=== PATIENT | female | born 1930 | race Caucasian/White ===

== ENCOUNTER 2017-07-31 19:22 | Inpatient (IN) | payer MEDICARE, MEDICAID ==
[~2017-07-31] VITALS: Ht 160 cm; Wt 72.6 kg
[2017-07-31] MEDS ORDERED: HYDROcodone/APAP 5/325MG 1 TAB TABLET PO ONE (20:00)
--- NOTE | 2017-07-31 20:06 | PHYS DOC ---
Past Medical History Past Medical History: CHF, CVA, Diabetes-Type II, Hypertension, CO, Other Additional Past Medical Histor: ALZHEIMER'S Past Surgical History: Angioplasty, Cholecystectomy, Hysterectomy, Knee Replacement, Other Additional Past Surgical Histo: CARDIAC STENTS Alcohol Use: None Drug Use: None Adult General Chief Complaint Chief Complaint: MULTIPLE TRAUMA/FALL HPI HPI Patient is a 87 year old tripped and fell and hit her head on the ground, she felt like her surgically repaired knee gave out. Patient's chief complaint today is head pain as well as neck pain and mild right knee pain. Patient has no other complaints. Review of Systems Review of Systems Constitutional: Denies fever or chills [] Eyes: Denies change in visual acuity, redness, or eye pain [] HENT: Injury to right forehead and right cheek Respiratory: Denies cough or shortness of breath [] Cardiovascular: No injury GI: Denies injury : Denies dysuria or hematuria [] Musculoskeletal: Right knee pain Integument: Abrasions to right forehead and right cheek Neurologic: Denies focal weakness or sensory changes . Mild headache All other systems reviewed and found to be negative unless otherwise stated Current Medications Current Medications Current Medications Medications (Trade) Dose Ordered Sig/Saloni Start Time Stop Time Status Last Admin Dose Admin Acetaminophen/ Hydrocodone Bitart (Lortab 5/325) 1 tab 1X ONCE 07/31/17 20:00 07/31/17 20:12 DC 07/31/17 20:25 1 TAB Ibuprofen (Motrin) 400 mg 1X ONCE 07/31/17 22:00 07/31/17 22:01 DC Ondansetron HCl (Zofran) 4 mg PRN Q8HRS PRN 07/31/17 23:15 08/01/17 23:14 Sodium Chloride 1,000 ml @ 125 mls/hr Q8H 07/31/17 23:01 08/01/17 23:00 Allergies Allergies Allergies Coded Allergies Type Severity Reaction Last Updated Verified ibuprofen Allergy Intermediate 07/31/17 Yes acetaminophen Allergy Mild 07/31/17 Yes propoxyphene Adverse Reaction Mild N/V 07/31/17 Yes Physical Exam Physical Exam Constitutional: Well developed, well nourished, no acute distress, non-toxic appearance. [] HENT: Normocephalic, hematoma right forehead, bilateral external ears normal, oropharynx moist, no oral trauma, nose normal. Tenderness to palpation at the level of C6-C7 without step-offs Eyes:EOMI no evidence of entrapment, conjunctiva normal, no discharge. [] Neck: Normal range of motion, no tenderness, supple, no stridor. [] Cardiovascular:Heart rate regular rhythm, no murmur. Tenderness to palpation at the level of C6-C7 without step-offs Lungs & Thorax: Bilateral breath sounds clear to auscultation, no tachypnea Abdomen: Bowel sounds normal, soft, no tenderness, no masses, no pulsatile masses. [] Skin: Warm, dry, no erythema, no rash. Exception: Abrasion to right forehead and right cheek Back: No tenderness, no CVA tenderness. Step-offs Extremities: No tenderness, no cyanosis, ROM intact, no edema. [] Neurologic: Alert and oriented X 3, normal motor function, no focal deficits noted. [] Psychologic: Affect normal, cooperative, mood normal. [] Current Patient Data Vital Signs Vital Signs Date Time Temp Pulse Resp B/P (MAP) Pulse Ox O2 Delivery O2 Flow Rate FiO2 07/31/17 22:24 67 20 160/136 (144) 98 Room Air 07/31/17 19:27 98.0 98.0 Lab Values Laboratory Tests Test 07/31/17 21:35 07/31/17 22:20 Urine Collection Type Unknown Urine Color Yellow Urine Clarity Clear Urine pH 6.0 Urine Specific [place] 1.010 Urine Protein Negative mg/dL (NEG-TRACE) Urine Glucose (UA) Negative mg/dL (NEG) Urine Ketones (Stick) Negative mg/dL (NEG) Urine Blood Negative (NEG) Urine Nitrite Negative (NEG) Urine Bilirubin Negative (NEG) Urine Urobilinogen Dipstick 0.2 mg/dL (0.2 mg/dL) Urine Leukocyte Esterase Trace (NEG) Urine RBC 0 /HPF (0-2) Urine WBC 1-4 /HPF (0-4) Urine Squamous Epithelial Cells Few /LPF Urine Bacteria Few /HPF (0-FEW) White Blood Count 12.3 x10^3/uL (4.0-11.0) H Red Blood Count 3.45 x10^6/uL (3.50-5.40) L Hemoglobin 11.2 g/dL (12.0-15.5) L Hematocrit 33.2 % (36.0-47.0) L Mean Corpuscular Volume 96 fL (79-100) Mean Corpuscular Hemoglobin 32 pg (25-35) Mean Corpuscular Hemoglobin Concent 34 g/dL (31-37) Red Cell Distribution Width 14.2 % (11.5-14.5) Platelet Count 249 x10^3/uL (140-400) Neutrophils (%) (Auto) 71 % (31-73) Lymphocytes (%) (Auto) 18 % (24-48) L Monocytes (%) (Auto) 10 % (0-9) H Eosinophils (%) (Auto) 1 % (0-3) Basophils (%) (Auto) 1 % (0-3) Neutrophils # (Auto) 8.7 x10^3uL (1.8-7.7) H Lymphocytes # (Auto) 2.2 x10^3/uL (1.0-4.8) Monocytes # (Auto) 1.2 x10^3/uL (0.0-1.1) H Eosinophils # (Auto) 0.1 x10^3/uL (0.0-0.7) Basophils # (Auto) 0.1 x10^3/uL (0.0-0.2) Sodium Level 141 mmol/L (136-145) Potassium Level 4.5 mmol/L (3.5-5.1) Chloride Level 105 mmol/L (98-107) Carbon Dioxide Level 28 mmol/L (21-32) Anion Gap 8 (6-14) Blood Urea Nitrogen 36 mg/dL (7-20) H Creatinine 1.8 mg/dL (0.6-1.0) H Estimated GFR (Cockcroft-Gault) 26.7 Glucose Level 146 mg/dL (70-99) H Calcium Level 9.3 mg/dL (8.5-10.1) Troponin I Quantitative < 0.017 ng/mL (0.000-0.055) Laboratory Tests 07/31/17 22:20 Laboratory Tests 07/31/17 22:20 EKG EKG [] Radiology/Procedures Radiology/Procedures [] Course & Med Decision Making Course & Med Decision Making Pertinent Labs and Imaging studies reviewed. (See chart for detail pt in nad. Pt felt dizzy in bathroom and had to be helped. Offered pt admission but pt wants to try and go home. Pt now states she does not feel steady enough to walk. Will check labs, hydrate and plan to admit for obs. Pt will be signed out to Dr Cole to follow up on labs. Signout obtained from Dr. You at 9:45 PM. Patient sustained a head injury and had a negative ER workup. Upon attempted discharge patient the patient was ataxic and unable to ambulate on her own. Patient was unable to ambulate with a walker either. Given the patient's recent head trauma it's unclear whether not she fell secondary to a primary process or if the ataxia is a result of the fall itself from a concussion. Patient's labs were within normal limits except for an elevated BUN/creatinine. I do not have any old labs to review however given the patient's symptoms and inability to ambulate and her dehydration she will need to be admitted for further evaluation and monitoring. Case has been discussed with Dr. Hanley who agrees with the plan to admit the patient. [] Dragon Disclaimer Dragon Disclaimer This electronic medical record was generated, in whole or in part, using a voice recognition dictation system. Departure Departure Impression: Primary Impression: Head injury Additional Impressions: Hematoma Abrasion Dizziness Dehydration Ataxia Concussion Disposition: ADMITTED INPATIENT Admitting Physician: Other (reusch) Condition: STABLE Referrals: ELIZABETH BROWER (PCP) Problem Qualifiers Matias YOU MD Jul 31, 2017 20:06 LUANA COLE MD Jul 31, 2017 23:20
--- NOTE | 2017-07-31 20:39 | RAD ---
Indication: Pain after fall. Technique: Noncontrast CT head was obtained. CT cervical spine includes axial images and coronal and sagittal reformatted images. Comparisons are from June 04, 2009. One or more of the following individualized dose reduction techniques were utilized for this examination: 1. Automated exposure control 2. Adjustment of the mA and/or kV according to patient size 3. Use of iterative reconstruction technique Findings: Head: There is prominence of the ventricles and sulci. Areas of decreased attenuation in the supratentorial white matter are not specific but most suggestive of moderate small vessel ischemic disease. Small chronic appearing lacunar infarcts in the basal ganglia are noted. There is no acute intracranial hemorrhage or extra-axial fluid collection. There is no mass effect or midline shift. Benign calcifications are noted in the basal ganglia. There is no evidence of an acute infarct. There are vascular calcifications. There is no depressed skull fracture. There is a right frontal scalp hematoma. This extends right preseptal. Cervical spine: There is no fracture or dislocation. Prevertebral soft tissues are within normal limits. Craniovertebral junction is unremarkable. There are mild degenerative changes in the spine. Left common and internal carotid artery takes a retropharyngeal course. There are carotid artery calcifications. There is minimal apical emphysema and presumed apical scarring. IMPRESSION: 1. No acute intracranial findings. Brain parenchymal volume loss and probable small vessel ischemic disease. 2. Negative for fracture or dislocation in the cervical spine. Mild degenerative changes. Electronically signed by: Guilherme Garcia MD (07/31/2017 8:36 PM) [facility]
[2017-07-31 21:53] LABS: BILIRUBIN,URINE NEGATIVE (NEG); GLUCOSE,URINE NEGATIVE (NEG); NITRITE,URINE NEGATIVE (NEG); PROTEIN,URINE NEGATIVE (NEG-TRACE); UROBILINOGEN,URINE 0.2 mg/dL (0.2 mg/dL)
[2017-07-31] MEDS ORDERED: IV NORMAL SALINE 500ML BAG 500 ML IV ONE (22:00)
[2017-07-31] MEDS ORDERED: IBUPROFEN 400 MG TABLET. PO ONE (22:00)
[2017-07-31 22:01] LABS: BACTERIA,URINE FEW /HPF (0-FEW); RBC,URINE 0 /HPF (0-2); SQUAMOUS EPITHELIAL CELL,UR FEW /LPF
[2017-07-31 22:30] LABS: BASO # 0.1 x10^3/uL (0.0-0.2); BASO % 1 % (0-3); EOS % 1 % (0-3); HEMATOCRIT 33.2 % (36.0-47.0); HEMOGLOBIN 11.2 g/dL (12.0-15.5); LYMPH # 2.2 x10^3/uL (1.0-4.8); LYMPH % 18 % (24-48); MEAN CORPUSCULAR HEMOGLOBIN 32 pg (25-35); MEAN CORPUSCULAR HGB CONC 34 g/dL (31-37); MEAN CORPUSCULAR VOLUME 96 fL (79-100); MONO % 10 % (0-9); NEUT % 71 % (31-73); PLATELET COUNT 249 x10^3/uL (140-400); RED BLOOD COUNT 3.45 x10^6/uL (3.50-5.40); RED CELL DISTRIBUTION WIDTH 14.2 % (11.5-14.5); WHITE BLOOD COUNT 12.3 x10^3/uL (4.0-11.0)
[2017-07-31 22:44] LABS: CALCIUM 9.3 mg/dL (8.5-10.1); CREATININE 1.8 mg/dL (0.6-1.0); GFR 26.7; POTASSIUM 4.5 mmol/L (3.5-5.1)
[2017-07-31] MEDS ORDERED: ONDANSETRON PF 4 MG/2 ML VIAL. IV PRN (23:15)
[2017-07-31] MEDS ORDERED: DEXTROSE 50% 25 GM / 50ML DISP.SYRIN. IV PRN (23:30)
[2017-07-31] MEDS: IV NORMAL SALINE 1000ML BAG 1,000 ML IV SCH (23:31)
--- NOTE | 2017-07-31 23:51 | HP ---
ADMIT DATE: 07/31/2017 CHIEF COMPLAINT: Fall with head injury. HISTORY OF PRESENT ILLNESS: The patient is an 87-year-old woman with past medical history of CAD, peripheral vascular disease, and diabetes, who started feeling lightheaded and suddenly could not keep up on her legs and fell outside her house on a concrete path, striking her right forehead. She presented to the Emergency Room where x-rays did not reveal any bony fractures or intracranial head injury. However, when trying to ambulate, the patient was found to be quite ataxic and is therefore admitted for further workup. She affirms current headache. Prior to the episode of fall today she felt lightheaded, never lost consciousness, however. She denies any chest pain, shortness of breath, nausea, vomiting, or diaphoresis. She did have 1 more episode of similar leg weakness with fall in her living room and mild right elbow injury 1 week ago. PAST MEDICAL HISTORY: CAD status post cardiac stent placement several years ago, peripheral vascular disease status several stent on the right, status post CVA, diabetes type 2, hypertension, and Alzheimer's. FAMILY HISTORY: Positive for daughter passing away of heart disease, 2 children with lung cancer have passed as well. SOCIAL HISTORY: Currently lives with her son-in-law and granddaughter, quit smoking several years ago. No toxic habits. ALLERGIES: TYLENOL, IBUPROFEN, PROPOXYPHENE. MEDICATIONS: MAR reconciled with home medications. REVIEW OF SYSTEMS: Positive for headache has general aches and pains from arthritis especially chronic back pain for which she takes half a hydrocodone at night. Denies any other focal symptoms, however. PHYSICAL EXAMINATION: VITAL SIGNS: Show a blood pressure of 160/136. Previous blood pressure of 198/87, a pulse at 67, respiratory rate at 20. She is afebrile. GENERAL: This is a well-nourished 87-year-old woman, alert and oriented, in no acute distress. HEENT: Shows bruising over the left buddhist with massive periorbital hematoma with mild pressure on the eyelid. Eye itself appears unaffected. NECK: Supple. LUNGS: Clear to auscultation bilaterally. HEART: Has regular rate and rhythm. ABDOMEN: Has positive bowel sounds, soft, nontender. EXTREMITIES: Show no edema. SKIN: Warm, soft and dry without any rash. LABORATORY DATA: CBC with a WBC of 12.3, hemoglobin 11.2, platelets of 249. Chemistries with a BUN and creatinine of 36 and 1.8. No prior labs available for comparison. Electrolytes, however, are within normal limits. Glucose at 146, troponin is negative. IMAGING: Head and neck CT shows no acute intracranial findings. There is parenchymal volume loss and probable small vessel ischemic disease, no fracture or dislocation of the cervical spine is noted. ASSESSMENT AND PLAN: The patient is an 87-year-old woman with heart disease who presents with a fall associated with lightheadedness. She will be admitted for neurological monitoring as well as cardiac evaluation to rule out any arrhythmias or heart disease associated with her fall. Serial troponins will be obtained. She is placed on tele, cardiac evaluation will be requested in the morning. We will continue all her secondary prevention medications. Her diabetes, currently appears fairly well controlled. We will continue her home regimen, add insulin sliding scale. Hemoglobin A1c will be obtained in the morning as well. We will continue all her other home medications including Namenda and Aricept. We will hold bisphosphonate for osteoporosis for the time being. RACHEAL BRASWELL MD DR: UR/nts JOB#: [id number] / [id number] ELIZABETH Martinez MD
[2017-08-01] VITALS (7 sets, daily range): BP systolic 115–190; BP diastolic 46–74
--- NOTE | 2017-08-01 07:18 | EKG ---
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
--- NOTE | 2017-08-01 07:26 | RAD ---
EXAM: Right knee, 3 views HISTORY: Right knee pain. COMPARISON: 12/16/2005. FINDINGS: A tricompartmental arthroplasty is in expected alignment. There is periosteal reaction about the proximal fibular metadiaphysis consistent with a healed fracture or stress reaction. Osteopenia is moderate. There is no joint effusion. Atherosclerotic calcifications are noted. There is a bone island within the distal femoral metaphysis, stable chronically. IMPRESSION: 1. Healed fracture versus developing stress reaction within the proximal fibular metadiaphysis. Correlate for the site of pain. 2. Right total knee arthroplasty in expected alignment. 3. If there is further concern for patellar fracture, a sunrise view could further evaluate.
[2017-08-01] MEDS: INSULIN ASPART 300 UNITS/3 ML INSULN.PEN SQ SCH ×3 (08:00→17:00)
[2017-08-01] MEDS: IV NORMAL SALINE 1000ML BAG 1,000 ML IV SCH (08:46)
[2017-08-01] MEDS ORDERED: MEMA10TA PO (12:07)
[2017-08-01] MEDS ORDERED: LISI-334 PO (12:07)
[2017-08-01] MEDS ORDERED: CLOP75TA PO ×2 (12:07→16:48)
[2017-08-01] MEDS ORDERED: SITA100T PO (12:07)
[2017-08-01] MEDS ORDERED: SIMV40TA3 PO (12:07)
[2017-08-01] MEDS ORDERED: HYDR-2762 PO (12:07)
[2017-08-01] MEDS ORDERED: LOSA100T6 PO (12:07)
[2017-08-01] MEDS ORDERED: PANT40TA5 PO (12:07)
[2017-08-01] MEDS ORDERED: MONT10TA9 PO (12:07)
[2017-08-01] MEDS ORDERED: LEVO100T5 PO (12:07)
[2017-08-01] MEDS ORDERED: DONE5TAB56 PO (12:07)
[2017-08-01] MEDS ORDERED: ALEN70TA5 PO (12:07)
[2017-08-01] MEDS ORDERED: LORA10TA3 PO (12:07)
--- NOTE | 2017-08-01 13:38 | PDOC2 ---
CARDIAC CONSULT DATE OF CONSULT Date of Consult DATE: 08/01/17 TIME: 13:32 REASON FOR CONSULT Reason for Consult: head injury, CHF on plavix REFERRING PHYSICIAN Referring Physician: Stanford SOURCE Source: Chart review, Patient HISTORY OF PRESENT ILLNESS HISTORY OF PRESENT ILLNESS This is a pleasant 87 yo female admitted for complains of lightheadedness and fall. Reports that she has had several episodes of lightheadedness in the last 2 weeks. This time yesterday afternoon she was taking the trash out and felt lightheaded and felt weak to her knees like her knee gave out and fell and hit her head on the concrete pavement. She sustained right periorbital contusion but no fractures sustained and right frontal head laceration/abrasion. Prior to this she was did not experience any vertigo, SOA, CP, palpitations but was shaky. Denies any visual, or auditory disturbances, nor unilateral weakness, or faical numbness or tingling. While she was on the floor she felt a little SOA but none significant. Denies any CHF symptoms of PND, leg swelling, or orthopnea. Reports adequate hydration. Again she did not lose consciousness. PAST MEDICAL HISTORY Cardiovascular: CAD, CHF, HTN, ID, Hyperlipidemia Pulmonary: No pertinent hx CENTRAL NERVOUS SYSTEM: CVA, Dementia (alzheimers) GI: GERD Heme/Onc: No pertinent hx Psych: No pertinent hx Musculoskeletal: Osteoarthritis Infectious disease: No pertinent hx ENT: Allergic Rhinitis, Other ([place]) Renal/: No pertinent hx Endocrine: Diabetes (2), Hypothyroidism Dermatology: No pertinent hx PAST SURGICAL HISTORY Past Surgical History: Cholecystectomy, Total knee replacement (right), Hysterectomy, Other (PTCA) FAMILY HISTORY Family History: Coronary Artery Disease ([facility]) SOCIAL HISTORY Smoke: No ALCOHOL: none Drugs: None Lives: with Family CURRENT MEDICATIONS CURRENT MEDICATIONS Current Medications Medications (Trade) Dose Ordered Sig/Saloni Route PRN Reason Start Time Stop Time Status Last Admin Dose Admin Acetaminophen/ Hydrocodone Bitart (Lortab 5/325) 1 tab 1X ONCE PO 07/31/17 20:00 07/31/17 20:12 DC 07/31/17 20:25 Sodium Chloride 500 ml @ 500 mls/hr 1X ONCE IV 07/31/17 22:00 07/31/17 23:01 DC 07/31/17 22:23 Sodium Chloride 1,000 ml @ 125 mls/hr Q8H IV 07/31/17 23:01 08/01/17 12:28 DC 08/01/17 08:46 ALLERGIES ALLERGIES: Coded Allergies: ibuprofen (Verified Allergy, Intermediate, 07/31/17) acetaminophen (Verified Allergy, Mild, 07/31/17) propoxyphene (Verified Adverse Reaction, Mild, N/V, 07/31/17) ROS Review of System 14 point ROS evaluated with pertinent positives noted per HPI PHYSICAL EXAM General: Alert, Oriented X3, Cooperative, No acute distress HEENT: Mucous membr. moist/pink, Other (right periorbital contusion/ecchymoses ) Heart: Regular rate (SR), Normal S1, Normal S2, Other (diffuse 3/6 systolic murmur) Abdomen: Soft, No tenderness Extremities: No cyanosis, No edema Skin: No breakdown, No significant lesion Neuro: Normal speech, Sensation intact Psych/Mental Status: Mental status NL, Mood NL MUSCULOSKELETAL: Osteoarthritic changes both hands VITALS VITALS Vital Signs Date Time Temp Pulse Resp B/P (MAP) Pulse Ox O2 Delivery O2 Flow Rate FiO2 08/01/17 11:04 97.9 59 18 115/51 (72) 96 Room Air 97.9 LABS Lab: Laboratory Tests Test 07/31/17 21:35 07/31/17 22:20 08/01/17 07:35 08/01/17 11:26 Urine Collection Type Unknown Urine Color Yellow Urine Clarity Clear Urine pH 6.0 Urine Specific [place] 1.010 Urine Protein Negative mg/dL (NEG-TRACE) Urine Glucose (UA) Negative mg/dL (NEG) Urine Ketones (Stick) Negative mg/dL (NEG) Urine Blood Negative (NEG) Urine Nitrite Negative (NEG) Urine Bilirubin Negative (NEG) Urine Urobilinogen Dipstick 0.2 mg/dL (0.2 mg/dL) Urine Leukocyte Esterase Trace (NEG) Urine RBC 0 /HPF (0-2) Urine WBC 1-4 /HPF (0-4) Urine Squamous Epithelial Cells Few /LPF Urine Bacteria Few /HPF (0-FEW) White Blood Count 12.3 x10^3/uL (4.0-11.0) Red Blood Count 3.45 x10^6/uL (3.50-5.40) Hemoglobin 11.2 g/dL (12.0-15.5) Hematocrit 33.2 % (36.0-47.0) Mean Corpuscular Volume 96 fL (79-100) Mean Corpuscular Hemoglobin 32 pg (25-35) Mean Corpuscular Hemoglobin Concent 34 g/dL (31-37) Red Cell Distribution Width 14.2 % (11.5-14.5) Platelet Count 249 x10^3/uL (140-400) Neutrophils (%) (Auto) 71 % (31-73) Lymphocytes (%) (Auto) 18 % (24-48) Monocytes (%) (Auto) 10 % (0-9) Eosinophils (%) (Auto) 1 % (0-3) Basophils (%) (Auto) 1 % (0-3) Neutrophils # (Auto) 8.7 x10^3uL (1.8-7.7) Lymphocytes # (Auto) 2.2 x10^3/uL (1.0-4.8) Monocytes # (Auto) 1.2 x10^3/uL (0.0-1.1) Eosinophils # (Auto) 0.1 x10^3/uL (0.0-0.7) Basophils # (Auto) 0.1 x10^3/uL (0.0-0.2) Sodium Level 141 mmol/L (136-145) Potassium Level 4.5 mmol/L (3.5-5.1) Chloride Level 105 mmol/L (98-107) Carbon Dioxide Level 28 mmol/L (21-32) Anion Gap 8 (6-14) Blood Urea Nitrogen 36 mg/dL (7-20) Creatinine 1.8 mg/dL (0.6-1.0) Estimated GFR (Cockcroft-Gault) 26.7 Glucose Level 146 mg/dL (70-99) Calcium Level 9.3 mg/dL (8.5-10.1) Troponin I Quantitative < 0.017 ng/mL (0.000-0.055) Glucose (Fingerstick) 141 mg/dL (70-99) 126 mg/dL (70-99) ASSESSMENT/PLAN ASSESSMENT/PLAN 1. Presyncope with traumatic Mechanical fall/periorbital contusion: no fractures. Possible vasovagal but chronotropic oincompetence or bradyarrhythmia could not be ruled out. 2. CAD: PCI/stent >5yrs ago. No cardiac symptoms. 3. Chronic CHF with possible diastolic dysfunction: compensated 4. Suspecting 5. Accelerated HTN: better 6. Alzheimers dementia 7. Hx of CVA with possible carotid artery disease 8. Hypothyroidism/DM2: hypoglycemic reaction could not be ruled out. Recommendations 1. TTE today. If no significant ectopies then will plan for event monitor 2. Will ambulate pt and not chronotropic response, discussed with RN. 3. May DC plavix for now and continue with ECASA. 4. Continue with BP home meds. 5. Carotid doppler. TSH, lipid panel. 6. Has not followed up with cardiology in a while, will establish f/u as an outpt. Problems: DILIA ODELL APRN Aug 01, 2017 13:38
[2017-08-01] MEDS ORDERED: METOPROLOL TART IMMED RELEASE 25 MG TABLET. PO SCH (14:30)
--- NOTE | 2017-08-01 15:07 | PDOC ---
PROGRESS NOTES Chief Complaint Chief Complaint Dizziness Fall with head trauma ASSESSMENT AND PLAN: 1. Periorbital hematoma: w/o fx. treat symptomatically 2. Dizziness: cardiology consulted. echo pending. needs Holter post D/C 3. CAD: PCI/stent >5yrs ago. no acute issues. cont home meds - hold plavix as per cards 4. Accelerated HTN: adjust meds as indicated 5. PVD: hx CVA; carotid US 6. DM2: fairly well controlled. HgbA1c pending 7. Dementia: mild. cont Namenda and Aricept. History of Present Illness History of Present Illness feels ok, no significant BERGMAN. in good spirits Vitals Vitals Vital Signs Date Time Temp Pulse Resp B/P (MAP) Pulse Ox O2 Delivery O2 Flow Rate FiO2 08/01/17 11:04 97.9 59 18 115/51 (72) 96 Room Air 97.9 Physical Exam General: Alert, Oriented X3, Cooperative, No acute distress Heart: Regular rate, Other ( 3/6 systolic murmur) Lungs: Clear Abdomen: Normal bowel sounds, Soft, No tenderness Extremities: No cyanosis, No edema Skin: No rashes Labs LABS Laboratory Tests Test 07/31/17 21:35 07/31/17 22:20 08/01/17 07:35 08/01/17 11:26 Urine Collection Type Unknown Urine Color Yellow Urine Clarity Clear Urine pH 6.0 Urine Specific [place] 1.010 Urine Protein Negative mg/dL (NEG-TRACE) Urine Glucose (UA) Negative mg/dL (NEG) Urine Ketones (Stick) Negative mg/dL (NEG) Urine Blood Negative (NEG) Urine Nitrite Negative (NEG) Urine Bilirubin Negative (NEG) Urine Urobilinogen Dipstick 0.2 mg/dL (0.2 mg/dL) Urine Leukocyte Esterase Trace (NEG) Urine RBC 0 /HPF (0-2) Urine WBC 1-4 /HPF (0-4) Urine Squamous Epithelial Cells Few /LPF Urine Bacteria Few /HPF (0-FEW) White Blood Count 12.3 x10^3/uL (4.0-11.0) Red Blood Count 3.45 x10^6/uL (3.50-5.40) Hemoglobin 11.2 g/dL (12.0-15.5) Hematocrit 33.2 % (36.0-47.0) Mean Corpuscular Volume 96 fL (79-100) Mean Corpuscular Hemoglobin 32 pg (25-35) Mean Corpuscular Hemoglobin Concent 34 g/dL (31-37) Red Cell Distribution Width 14.2 % (11.5-14.5) Platelet Count 249 x10^3/uL (140-400) Neutrophils (%) (Auto) 71 % (31-73) Lymphocytes (%) (Auto) 18 % (24-48) Monocytes (%) (Auto) 10 % (0-9) Eosinophils (%) (Auto) 1 % (0-3) Basophils (%) (Auto) 1 % (0-3) Neutrophils # (Auto) 8.7 x10^3uL (1.8-7.7) Lymphocytes # (Auto) 2.2 x10^3/uL (1.0-4.8) Monocytes # (Auto) 1.2 x10^3/uL (0.0-1.1) Eosinophils # (Auto) 0.1 x10^3/uL (0.0-0.7) Basophils # (Auto) 0.1 x10^3/uL (0.0-0.2) Sodium Level 141 mmol/L (136-145) Potassium Level 4.5 mmol/L (3.5-5.1) Chloride Level 105 mmol/L (98-107) Carbon Dioxide Level 28 mmol/L (21-32) Anion Gap 8 (6-14) Blood Urea Nitrogen 36 mg/dL (7-20) Creatinine 1.8 mg/dL (0.6-1.0) Estimated GFR (Cockcroft-Gault) 26.7 Glucose Level 146 mg/dL (70-99) Calcium Level 9.3 mg/dL (8.5-10.1) Troponin I Quantitative < 0.017 ng/mL (0.000-0.055) Glucose (Fingerstick) 141 mg/dL (70-99) 126 mg/dL (70-99) RACHEAL BRASWELL MD Aug 01, 2017 15:07
[2017-08-01] MEDS: ASPIRIN ENTERIC COATED 81 MG TABLET.DR. PO SCH (15:43)
[2017-08-01] MEDS: LISINOPRIL 20 MG TABLET PO SCH (15:43)
--- NOTE | 2017-08-01 16:20 | CARD ---
APPROVED REPORT EXAM: Two-dimensional and M-mode echocardiogram with Doppler and color Doppler. Other Information Quality : Fair INDICATION Presyncope 2D DIMENSIONS RVDd2.8 (2.9-3.5cm)Left Atrium(2D)3.2 (1.6-4.0cm) IVSd1.3 (0.7-1.1cm)Aortic Root(2D)2.8 (2.0-3.7cm) LVDd4.9 (3.9-5.9cm)LVOT Diameter2.2 (1.8-2.4cm) PWd1.2 (0.7-1.1cm)LVDs3.1 (2.5-4.0cm) FS (%) 36.1 %SV73.2 ml LVEF(%)60.0 (>50%) Aortic Valve AoV Peak Joey.160.5cm/sAoV VTI44.2cm AO Peak GR.10.3mmHgLVOT Peak Joey.140.3cm/s LVOT VTI 37.19cmAO Mean GR.7mmHg JOCELIN (VMAX)3.34ee2SIA (VTI)3.20cm2 Mitral Valve MV E Qtekilbr86.8cm/sMV DECEL [id number] MV A Mmaimcxm768.2cm/sMV ZQM110zp E/A Ratio0.8MVA (PHT)1.99cm2 TDI E/Lateral E'14.3E/Medial E'21.1 Tricuspid Valve TR P. Ikdvoouw556de/sRAP [id number] TR Peak Gr.34jzRaHNOI03slJz Pulmonary Vein S1 Nkyycroc74.0cm/sD2 Sxjhpcbe25.8cm/s LEFT VENTRICLE The left ventricle is normal size. There is mild concentric left ventricular hypertrophy. The Ejectio n Fraction is 55-60%. The left ventricular systolic function is normal and the ejection fraction is w ithin normal range. There is normal LV segmental wall motion. Transmitral Doppler flow pattern is Gra de I-abnormal relaxation pattern. RIGHT VENTRICLE The right ventricle is normal size. The right ventricular systolic function is normal. ATRIA The left atrium size is normal. The right atrium size is normal. The interatrial septum is intact wit h no evidence for an atrial septal defect or patent foramen ovale as noted on 2-D or Doppler imaging. AORTIC VALVE The aortic valve is calcified but opens well. Doppler and Color Flow revealed no significant aortic r egurgitation. There is no significant aortic valvular stenosis. MITRAL VALVE The mitral valve is calcified but opens well. Mitral annular calcification is mild. There is no evide nce of mitral valve prolapse. There is no mitral valve stenosis. Doppler and Color-flow revealed trac e to mild mitral regurgitation. TRICUSPID VALVE The tricuspid valve is normal in structure and function. Doppler and Color Flow revealed trace to mil d tricuspid regurgitation. The PA pressure was estimated at 31 mmHg. There is no tricuspid valve sten osis. PULMONIC VALVE The pulmonary valve is normal in structure and function. Doppler and Color Flow revealed trace to mil d pulmonic valvular regurgitation. There is no pulmonic valvular stenosis. GREAT VESSELS The aortic root is normal in size. The ascending aorta is normal in size. The IVC is normal in size a nd collapses >50% with inspiration. PERICARDIAL EFFUSION There is no evidence of significant pericardial effusion. Critical Notification Critical Value: No <Conclusion> The left ventricle is normal size. The Ejection Fraction is 55-60%. The left ventricular systolic function is normal and the ejection fraction is within normal range. There is mild concentric left ventricular hypertrophy. There is no significant aortic valvular stenosis. Doppler and Color Flow revealed no significant aortic regurgitation. Doppler and Color-flow revealed trace to mild mitral regurgitation. Doppler and Color Flow revealed trace to mild tricuspid regurgitation. The PA pressure was estimated at 31 mmHg.
[2017-08-01] MEDS ORDERED: MEMA14CA PO (16:48)
[2017-08-01] MEDS ORDERED: METO25TA4 PO (16:48)
[2017-08-01] MEDS: PANTOPRAZOLE 40 MG TABLET.DR. PO SCH (16:52)
[2017-08-01] MEDS ORDERED: hydrALAZINE 20 MG/ML VIAL. IVP PRN (17:15)
--- NOTE | 2017-08-01 18:14 | RAD ---
APPROVED REPORT Patient Location: IN-PATIENT Laterality:Bilateral Indications Bruit CVA/TIA: PRESYNCOPY Doppler Spectral Velocity Analysis Right Left mCCA 69/69 cm/smCCA 58/58 cm/s ECA 160/ cm/sECA 106/ cm/s pICA 246/62 cm/spICA 77/21 cm/s [place] 194/38 cm/smICA 101/17 cm/s dICA 83/16 cm/sdICA 90/19 cm/s ICA/CCA 3.57ICA/CCA 0.90 Findings Queen scale images of the right common carotid artery bifurcation demonstrate significant atherosclero tic plaque. There is significant burden noted at the ostium of the internal carotid artery of greater than 50% luminal stenosis. Spectral waveforms in the proximal internal carotid artery are consistent with greater than 70% stenosis. Peak systolic velocities of 246 cm/s are again consistent with great er than 70% stenosis. The right external carotid artery does not demonstrate any evidence of high-gra de disease but does have elevated velocities of approximately 160 cm/s. The ICA to CCA ratios are georgina vated on the right side again consistent with the overall picture of high-grade internal carotid merline ry stenosis. The right vertebral artery appears to demonstrate retrograde flow suggestive of possible subclavian stenosis. Spectral waveforms and color Doppler of the left internal carotid artery, common carotid artery and e xternal carotid arteries do not demonstrate any evidence of high-grade disease. Velocity profiles are grossly normal suggestive 0-50% stenosis. The ICA to CCA ratios are unremarkable. The vertebral vel[place] on the left side appear to be antegrade and within normal limits. Critical Notification Critical Value: No <Conclusion> 1. High-grade right proximal and mid internal carotid artery disease with reversal of flow in the moiz tebral artery on the right side suggestive of subclavian stenosis.
[2017-08-01] MEDS: MEMANTINE 5 MG TABLET. PO SCH (20:54)
[2017-08-01] MEDS: SIMVASTATIN 40 MG TABLET. PO SCH (20:54)
[2017-08-01] MEDS: DONEPEZIL HCL 5 MG TABLET. PO SCH (20:54)
[2017-08-01] MEDS ORDERED: PNEUMOC CONJ VACC 23-VALENT 0.5 ML VIAL. VAX IM ONE (21:00)
[2017-08-01] MEDS ORDERED: FLU VACC QS2017-18 (36MOS+)/PF 0.5 ML SYRINGE. VAX IM ONE (21:00)
[2017-08-02 03:00] VITALS: BP 138/61
[2017-08-02 05:42] LABS: CALCIUM 8.6 mg/dL (8.5-10.1); CREATININE 1.6 mg/dL (0.6-1.0); GFR 30.6; POTASSIUM 4.5 mmol/L (3.5-5.1)
[2017-08-02 05:52] LABS: CHOLESTEROL/HDL RATIO 4.1
[2017-08-02 07:00] VITALS: BP 125/49
[2017-08-02] MEDS ORDERED: LEVOTHYROXINE 100 MCG TABLET PO SCH (07:30)
[2017-08-02] MEDS: ASPIRIN ENTERIC COATED 81 MG TABLET.DR. PO SCH (07:41)
[2017-08-02] MEDS: INSULIN ASPART 300 UNITS/3 ML INSULN.PEN SQ SCH ×3 (07:42→17:00)
[2017-08-02] MEDS: LINAGLIPTIN 5 MG TABLET PO SCH (08:47)
[2017-08-02] MEDS: LISINOPRIL 20 MG TABLET PO SCH (08:47)
[2017-08-02] MEDS: PANTOPRAZOLE 40 MG TABLET.DR. PO SCH (08:47)
[2017-08-02] MEDS: MEMANTINE 5 MG TABLET. PO SCH ×2 (08:47→20:25)
--- NOTE | 2017-08-02 10:17 | PDOC ---
BR[employer] 08/02/17 1017: PROGRESS NOTES Subjective Subjective Denies any further lightheadedness, no chest pain or dyspnea. No palpitations. Objective Objective Vital Signs Date Time Temp Pulse Resp B/P (MAP) Pulse Ox O2 Delivery O2 Flow Rate FiO2 08/02/17 08:47 58 125/49 08/02/17 07:30 Room Air 08/02/17 07:00 97.5 16 93 97.5 Physical Exam Abdomen: Normal bowel sounds, Soft, No tenderness Heart: Regular rate, Normal S1, Normal S2, Other (no gallops, clicks or rubs) General: Alert, Oriented X3, Cooperative, No acute distress HEENT: Other (bilateral carotid bruits) Lungs: Clear to auscultation Neuro: Normal speech Psych/Mental Status: Mental status NL, Mood NL Assessment Assessment Problems Medical Problems: (1) Abrasion Status: Acute (2) Dehydration Status: Acute (3) Dizziness Status: Acute (4) Head injury Status: Acute (5) Hematoma Status: Acute 1. presyncope with traumatic Mechanical fall/periorbital contusion: no fractures. No arrhythmias on monitor. No by echo. no significant orthostasis. Suggest outpatient MCT to evaluate bradycardia. 2. CAD: PCI/stent >5yrs ago. angina free. Normal LVEF and wall motion by echo. 3. PAD - High-grade right proximal and mid internal carotid artery disease with reversal of flow in the vertebral artery on the right side suggestive of subclavian stenosis. Consult vascular for eval. 4. Chronic diastolic CHF - compensated 5. Accelerated HTN: improved. 6. DM per pcp 7. hypothyroid - per PCP Comment Review of Relevant I have reviewed the following items yesenia (where applicable) has been applied. Labs Laboratory Tests Test 07/31/17 21:35 07/31/17 22:20 08/01/17 07:35 08/01/17 11:26 Urine Collection Type Unknown Urine Color Yellow Urine Clarity Clear Urine pH 6.0 Urine Specific [place] 1.010 Urine Protein Negative mg/dL (NEG-TRACE) Urine Glucose (UA) Negative mg/dL (NEG) Urine Ketones (Stick) Negative mg/dL (NEG) Urine Blood Negative (NEG) Urine Nitrite Negative (NEG) Urine Bilirubin Negative (NEG) Urine Urobilinogen Dipstick 0.2 mg/dL (0.2 mg/dL) Urine Leukocyte Esterase Trace (NEG) Urine RBC 0 /HPF (0-2) Urine WBC 1-4 /HPF (0-4) Urine Squamous Epithelial Cells Few /LPF Urine Bacteria Few /HPF (0-FEW) White Blood Count 12.3 x10^3/uL (4.0-11.0) Red Blood Count 3.45 x10^6/uL (3.50-5.40) Hemoglobin 11.2 g/dL (12.0-15.5) Hematocrit 33.2 % (36.0-47.0) Mean Corpuscular Volume 96 fL (79-100) Mean Corpuscular Hemoglobin 32 pg (25-35) Mean Corpuscular Hemoglobin Concent 34 g/dL (31-37) Red Cell Distribution Width 14.2 % (11.5-14.5) Platelet Count 249 x10^3/uL (140-400) Neutrophils (%) (Auto) 71 % (31-73) Lymphocytes (%) (Auto) 18 % (24-48) Monocytes (%) (Auto) 10 % (0-9) Eosinophils (%) (Auto) 1 % (0-3) Basophils (%) (Auto) 1 % (0-3) Neutrophils # (Auto) 8.7 x10^3uL (1.8-7.7) Lymphocytes # (Auto) 2.2 x10^3/uL (1.0-4.8) Monocytes # (Auto) 1.2 x10^3/uL (0.0-1.1) Eosinophils # (Auto) 0.1 x10^3/uL (0.0-0.7) Basophils # (Auto) 0.1 x10^3/uL (0.0-0.2) Sodium Level 141 mmol/L (136-145) Potassium Level 4.5 mmol/L (3.5-5.1) Chloride Level 105 mmol/L (98-107) Carbon Dioxide Level 28 mmol/L (21-32) Anion Gap 8 (6-14) Blood Urea Nitrogen 36 mg/dL (7-20) Creatinine 1.8 mg/dL (0.6-1.0) Estimated GFR (Cockcroft-Gault) 26.7 Glucose Level 146 mg/dL (70-99) Calcium Level 9.3 mg/dL (8.5-10.1) Troponin I Quantitative < 0.017 ng/mL (0.000-0.055) Glucose (Fingerstick) 141 mg/dL (70-99) 126 mg/dL (70-99) Test 08/01/17 16:47 08/01/17 21:42 08/02/17 05:00 08/02/17 07:33 Glucose (Fingerstick) 107 mg/dL (70-99) 193 mg/dL (70-99) 112 mg/dL (70-99) Sodium Level 142 mmol/L (136-145) Potassium Level 4.5 mmol/L (3.5-5.1) Chloride Level 109 mmol/L (98-107) Carbon Dioxide Level 25 mmol/L (21-32) Anion Gap 8 (6-14) Blood Urea Nitrogen 28 mg/dL (7-20) Creatinine 1.6 mg/dL (0.6-1.0) Estimated GFR (Cockcroft-Gault) 30.6 Glucose Level 124 mg/dL (70-99) Calcium Level 8.6 mg/dL (8.5-10.1) Triglycerides Level 222 mg/dL (0-150) Cholesterol Level 157 mg/dL (0-200) LDL Cholesterol, Calculated 75 mg/dL (0-100) VLDL Cholesterol, Calculated 44 mg/dL (0-40) Non-HDL Cholesterol Calculated 119 mg/dL (0-129) HDL Cholesterol 38 mg/dL (40-60) Cholesterol/HDL Ratio 4.1 Thyroid Stimulating Hormone (TSH) 24.805 uIU/mL (0.358-3.74) Laboratory Tests Test 08/01/17 11:26 08/01/17 16:47 08/01/17 21:42 08/02/17 05:00 Glucose (Fingerstick) 126 mg/dL (70-99) 107 mg/dL (70-99) 193 mg/dL (70-99) Sodium Level 142 mmol/L (136-145) Potassium Level 4.5 mmol/L (3.5-5.1) Chloride Level 109 mmol/L (98-107) Carbon Dioxide Level 25 mmol/L (21-32) Anion Gap 8 (6-14) Blood Urea Nitrogen 28 mg/dL (7-20) Creatinine 1.6 mg/dL (0.6-1.0) Estimated GFR (Cockcroft-Gault) 30.6 Glucose Level 124 mg/dL (70-99) Calcium Level 8.6 mg/dL (8.5-10.1) Triglycerides Level 222 mg/dL (0-150) Cholesterol Level 157 mg/dL (0-200) LDL Cholesterol, Calculated 75 mg/dL (0-100) VLDL Cholesterol, Calculated 44 mg/dL (0-40) Non-HDL Cholesterol Calculated 119 mg/dL (0-129) HDL Cholesterol 38 mg/dL (40-60) Cholesterol/HDL Ratio 4.1 Thyroid Stimulating Hormone (TSH) 24.805 uIU/mL (0.358-3.74) Test 08/02/17 07:33 Glucose (Fingerstick) 112 mg/dL (70-99) Microbiology 07/31/17 Urine Culture - Preliminary, Resulted 07/31/17 Urine Culture Result 1 (NBA) - Preliminary, Resulted Medications Current Medications Acetaminophen/ Hydrocodone Bitart (Lortab 5/325) 1 tab 1X ONCE PO Last administered on 07/31/17 20:25; Start 07/31/17 at 20:00; Stop 07/31/17 at 20:12 ; Status DC Ibuprofen (Motrin) 400 mg 1X ONCE PO ; Start 07/31/17 at 22:00; Stop 07/31/17 at 22:01; Status DC Sodium Chloride 500 ml @ 500 mls/hr 1X ONCE IV Last administered on 22:23; Start 07/31/17 at 22:00; Stop 07/31/17 at 23:01; Status DC Ondansetron HCl (Zofran) 4 mg PRN Q8HRS PRN IV NAUSEA/VOMITING; Start 07/31/17 at 23:15; Stop 08/01/17 at 23:14; Status DC Sodium Chloride 1,000 ml @ 125 mls/hr Q8H IV Last administered on 08/01/17 08 :46; Start 07/31/17 at 23:01; Stop 08/01/17 at 12:28; Status DC Insulin Aspart (NovoLOG) 0-9 UNITS TIDWMEALS SQ ; Start 08/01/17 at 08:00 Dextrose (Dextrose 50%-Water Syringe) 12.5 gm PRN Q15MIN PRN IV SEE COMMENTS; Start 07/31/17 at 23:30 Lisinopril (Prinivil) 20 mg DAILY PO Last administered on 08/02/17 08:47; Start 08/01/17 at 15:00 Pantoprazole Sodium (Protonix) 40 mg DAILY PO Last administered on 08/02/17 08 :47; Start 08/01/17 at 16:30 Simvastatin (Zocor) 40 mg QHS PO Last administered on 08/01/17 20:54; Start at 21:00 Metoprolol Tartrate (Lopressor) 12.5 mg BID PO Last administered on 08/01/17 15:45; Start 08/01/17 at 14:30; Stop 08/01/17 at 17:20; Status DC Aspirin (Ecotrin) 81 mg DAILYWBKFT PO Last administered on 08/02/17 07:41; Start 08/01/17 at 15:00 Donepezil HCl (Aricept) 5 mg QHS PO Last administered on 08/01/17 20:54; Start 08/01/17 at 21:00 Levothyroxine Sodium (Synthroid) 100 mcg DAILYAC PO Last administered on 07:41; Start 08/02/17 at 07:30 Memantine (Namenda) 5 mg BID PO Last administered on 08/02/17 08:47; Start at 21:00 Linagliptin (Tradjenta) 5 mg DAILY PO Last administered on 08/02/17 08:47; Start 08/02/17 at 09:00 Hydralazine HCl (Apresoline) 10 mg PRN Q4HRS PRN IVP ELEVATED BP, SEE COMMENTS ; Start 08/01/17 at 17:15 Pneumococcal Polyvalent Vaccine (Pneumovax 23) 0.5 ml ONCE ONCE VAX IM ; Start 08/01/17 at 21:00; Stop 08/01/17 at 21:01; Status DC Influenza Virus Vaccine Quadrival (Fluarix Quad [id number] Syringe) 0.5 ml ONCE ONCE VAX IM ; Start 08/01/17 at 21:00; Stop 08/01/17 at 21:01; Status DC Active Scripts Active Reported Clopidogrel (Clopidogrel Bisulfate) 75 Mg Tablet 1 Tab PO DAILY Namenda Xr (Memantine Hcl) 14 Mg Cap.spr.24 14 Mg PO DAILY Metoprolol Tartrate 25 Mg Tablet 1 Tab PO BID Lisinopril 20 Mg Tablet 1 Tab PO DAILY Januvia (Sitagliptin Phosphate) 100 Mg Tablet 1 Tab PO DAILY Losartan Potassium 100 Mg Tablet 100 Mg PO DAILY Levothyroxine Sodium 100 Mcg Tablet 1 Tab PO DAILY Simvastatin 40 Mg Tablet 1 Tab PO QHS Alendronate Sodium 70 Mg Tablet 1 Tab PO WEEKLY Aricept (Donepezil Hcl) 5 Mg Tablet 1 Tab PO QHS Pantoprazole Sodium 40 Mg Tablet. 1 Tab PO DAILY Hydrocodone-Apap 7.5-325 (Hydrocodone Bit/Acetaminophen) 1 Each Tablet 1 Tab PO PRN Q8HRS PRN Vitals/I & O Vital Sign - Last 24 Hours 08/01/17 08/01/17 08/01/17 08/01/17 11:04 15:09 15:43 15:45 Temp 97.9 98.3 97.9 98.3 Pulse 59 64 67 67 Resp 18 20 B/P (MAP) 115/51 (72) 163/65 (97) 163/65 163/65 Pulse Ox 96 97 O2 Delivery Room Air Room Air 08/01/17 08/01/17 08/01/17 08/02/17 19:00 20:00 23:00 03:00 Temp 98.5 98.4 98.1 98.5 98.4 98.1 Pulse 70 63 57 Resp 20 20 20 B/P (MAP) 143/67 (92) 122/49 (73) 138/61 (86) 144/60 (88) 126/46 (72) Pulse Ox 94 95 94 O2 Delivery Room Air Room Air Room Air Room Air 08/02/17 08/02/17 08/02/17 07:00 07:30 08:47 Temp 97.5 97.5 Pulse 58 58 Resp 16 B/P (MAP) 125/49 (74) 125/49 Pulse Ox 93 O2 Delivery Room Air Room Air MARYJANE ORTEGA MD 08/02/17 1347: PROGRESS NOTES Plan Plan of Care Patient seen and examined. Agree with above nurse practitioner note. No obvious cardiac source of syncope noted thus far. She does have significant right-sided carotid disease. She has not had any true syncope but had near syncope. Obtain vascular surgery consult. Supportive care from cardiac standpoint. OPAL BARRERA APRN Aug 02, 2017 10:17 MARYJANE ORTEGA MD Aug 02, 2017 13:47
[2017-08-02 11:04] VITALS: BP 133/54
--- NOTE | 2017-08-02 12:31 | PDOC ---
PROGRESS NOTES Chief Complaint Chief Complaint Dizziness Fall with head trauma PMH: CAD post stent placement PVD CVA DM HTN Alzheimer Disease CHF Hypothyroidism History of Present Illness History of Present Illness PT laying in bed and conversant. No new complaints as of this time. Pt ready to go home but discussed elevated creatinine and TSH and agrees to stay longer to work those up. Pt notices bandage over left eye but no stitches or efe are present Cardio: presyncope possible due to vasovagal or bradycardia Chronic CHF D/C Plavix Possible event monitor post D/C Echo: no abnormal findings Carotid doppler: High grade right ICA stenosis with reversal of flow through right vertebral - subclavian steal syndrome Vitals Vitals Vital Signs Date Time Temp Pulse Resp B/P (MAP) Pulse Ox O2 Delivery O2 Flow Rate FiO2 08/02/17 11:04 97.7 60 16 133/54 (80) 93 Room Air 97.7 Physical Exam General: Alert, Oriented X3, Cooperative, No acute distress Heart: Regular rate, Normal S1, Normal S2, Other Lungs: Clear Abdomen: Normal bowel sounds, Soft, No tenderness Extremities: No cyanosis, No edema Skin: No rashes, Other (bandage over right eye; contusions also present over right eye) Labs LABS Laboratory Tests Test 08/01/17 16:47 08/01/17 21:42 08/02/17 05:00 08/02/17 07:33 Glucose (Fingerstick) 107 mg/dL (70-99) 193 mg/dL (70-99) 112 mg/dL (70-99) Sodium Level 142 mmol/L (136-145) Potassium Level 4.5 mmol/L (3.5-5.1) Chloride Level 109 mmol/L (98-107) Carbon Dioxide Level 25 mmol/L (21-32) Anion Gap 8 (6-14) Blood Urea Nitrogen 28 mg/dL (7-20) Creatinine 1.6 mg/dL (0.6-1.0) Estimated GFR (Cockcroft-Gault) 30.6 Glucose Level 124 mg/dL (70-99) Calcium Level 8.6 mg/dL (8.5-10.1) Triglycerides Level 222 mg/dL (0-150) Cholesterol Level 157 mg/dL (0-200) LDL Cholesterol, Calculated 75 mg/dL (0-100) VLDL Cholesterol, Calculated 44 mg/dL (0-40) Non-HDL Cholesterol Calculated 119 mg/dL (0-129) HDL Cholesterol 38 mg/dL (40-60) Cholesterol/HDL Ratio 4.1 Thyroid Stimulating Hormone (TSH) 24.805 uIU/mL (0.358-3.74) Test 08/02/17 11:31 Glucose (Fingerstick) 111 mg/dL (70-99) Review of Systems Review of Systems PT complains of fatigue Pt Complains of hunger Assessment and Plan Assessmemt and Plan Problems Medical Problems: (1) Abrasion Status: Acute (2) Dehydration Status: Acute (3) Dizziness Status: Acute (4) Head injury Status: Acute (5) Hematoma Status: Acute Dizziness Fall with head trauma PMH: CAD post stent placement PVD CVA DM HTN Alzheimer Disease CHF Hypothyroidism Plan: Consult nephrology regarding increased creatinine Increase Synthroid to 112 mcg/day PT/OT Appreciate subspecialty input Recheck labs Cont. medications Cont. monitoring Problems: Comment Review of Relevant I have reviewed the following items yesenia (where applicable) has been applied. Labs Laboratory Tests Test 07/31/17 21:35 07/31/17 22:20 08/01/17 07:35 08/01/17 11:26 Urine Collection Type Unknown Urine Color Yellow Urine Clarity Clear Urine pH 6.0 Urine Specific [place] 1.010 Urine Protein Negative mg/dL (NEG-TRACE) Urine Glucose (UA) Negative mg/dL (NEG) Urine Ketones (Stick) Negative mg/dL (NEG) Urine Blood Negative (NEG) Urine Nitrite Negative (NEG) Urine Bilirubin Negative (NEG) Urine Urobilinogen Dipstick 0.2 mg/dL (0.2 mg/dL) Urine Leukocyte Esterase Trace (NEG) Urine RBC 0 /HPF (0-2) Urine WBC 1-4 /HPF (0-4) Urine Squamous Epithelial Cells Few /LPF Urine Bacteria Few /HPF (0-FEW) White Blood Count 12.3 x10^3/uL (4.0-11.0) Red Blood Count 3.45 x10^6/uL (3.50-5.40) Hemoglobin 11.2 g/dL (12.0-15.5) Hematocrit 33.2 % (36.0-47.0) Mean Corpuscular Volume 96 fL (79-100) Mean Corpuscular Hemoglobin 32 pg (25-35) Mean Corpuscular Hemoglobin Concent 34 g/dL (31-37) Red Cell Distribution Width 14.2 % (11.5-14.5) Platelet Count 249 x10^3/uL (140-400) Neutrophils (%) (Auto) 71 % (31-73) Lymphocytes (%) (Auto) 18 % (24-48) Monocytes (%) (Auto) 10 % (0-9) Eosinophils (%) (Auto) 1 % (0-3) Basophils (%) (Auto) 1 % (0-3) Neutrophils # (Auto) 8.7 x10^3uL (1.8-7.7) Lymphocytes # (Auto) 2.2 x10^3/uL (1.0-4.8) Monocytes # (Auto) 1.2 x10^3/uL (0.0-1.1) Eosinophils # (Auto) 0.1 x10^3/uL (0.0-0.7) Basophils # (Auto) 0.1 x10^3/uL (0.0-0.2) Sodium Level 141 mmol/L (136-145) Potassium Level 4.5 mmol/L (3.5-5.1) Chloride Level 105 mmol/L (98-107) Carbon Dioxide Level 28 mmol/L (21-32) Anion Gap 8 (6-14) Blood Urea Nitrogen 36 mg/dL (7-20) Creatinine 1.8 mg/dL (0.6-1.0) Estimated GFR (Cockcroft-Gault) 26.7 Glucose Level 146 mg/dL (70-99) Calcium Level 9.3 mg/dL (8.5-10.1) Troponin I Quantitative < 0.017 ng/mL (0.000-0.055) Glucose (Fingerstick) 141 mg/dL (70-99) 126 mg/dL (70-99) Test 08/01/17 16:47 08/01/17 21:42 08/02/17 05:00 08/02/17 07:33 Glucose (Fingerstick) 107 mg/dL (70-99) 193 mg/dL (70-99) 112 mg/dL (70-99) Sodium Level 142 mmol/L (136-145) Potassium Level 4.5 mmol/L (3.5-5.1) Chloride Level 109 mmol/L (98-107) Carbon Dioxide Level 25 mmol/L (21-32) Anion Gap 8 (6-14) Blood Urea Nitrogen 28 mg/dL (7-20) Creatinine 1.6 mg/dL (0.6-1.0) Estimated GFR (Cockcroft-Gault) 30.6 Glucose Level 124 mg/dL (70-99) Calcium Level 8.6 mg/dL (8.5-10.1) Triglycerides Level 222 mg/dL (0-150) Cholesterol Level 157 mg/dL (0-200) LDL Cholesterol, Calculated 75 mg/dL (0-100) VLDL Cholesterol, Calculated 44 mg/dL (0-40) Non-HDL Cholesterol Calculated 119 mg/dL (0-129) HDL Cholesterol 38 mg/dL (40-60) Cholesterol/HDL Ratio 4.1 Thyroid Stimulating Hormone (TSH) 24.805 uIU/mL (0.358-3.74) Test 08/02/17 11:31 Glucose (Fingerstick) 111 mg/dL (70-99) Laboratory Tests Test 08/01/17 16:47 08/01/17 21:42 08/02/17 05:00 08/02/17 07:33 Glucose (Fingerstick) 107 mg/dL (70-99) 193 mg/dL (70-99) 112 mg/dL (70-99) Sodium Level 142 mmol/L (136-145) Potassium Level 4.5 mmol/L (3.5-5.1) Chloride Level 109 mmol/L (98-107) Carbon Dioxide Level 25 mmol/L (21-32) Anion Gap 8 (6-14) Blood Urea Nitrogen 28 mg/dL (7-20) Creatinine 1.6 mg/dL (0.6-1.0) Estimated GFR (Cockcroft-Gault) 30.6 Glucose Level 124 mg/dL (70-99) Calcium Level 8.6 mg/dL (8.5-10.1) Triglycerides Level 222 mg/dL (0-150) Cholesterol Level 157 mg/dL (0-200) LDL Cholesterol, Calculated 75 mg/dL (0-100) VLDL Cholesterol, Calculated 44 mg/dL (0-40) Non-HDL Cholesterol Calculated 119 mg/dL (0-129) HDL Cholesterol 38 mg/dL (40-60) Cholesterol/HDL Ratio 4.1 Thyroid Stimulating Hormone (TSH) 24.805 uIU/mL (0.358-3.74) Test 08/02/17 11:31 Glucose (Fingerstick) 111 mg/dL (70-99) Microbiology 07/31/17 Urine Culture - Preliminary, Resulted 07/31/17 Urine Culture Result 1 (NBA) - Preliminary, Resulted Medications Current Medications Acetaminophen/ Hydrocodone Bitart (Lortab 5/325) 1 tab 1X ONCE PO Last administered on 07/31/17 20:25; Start 07/31/17 at 20:00; Stop 07/31/17 at 20:12 ; Status DC Ibuprofen (Motrin) 400 mg 1X ONCE PO ; Start 07/31/17 at 22:00; Stop 07/31/17 at 22:01; Status DC Sodium Chloride 500 ml @ 500 mls/hr 1X ONCE IV Last administered on 22:23; Start 07/31/17 at 22:00; Stop 07/31/17 at 23:01; Status DC Ondansetron HCl (Zofran) 4 mg PRN Q8HRS PRN IV NAUSEA/VOMITING; Start 07/31/17 at 23:15; Stop 08/01/17 at 23:14; Status DC Sodium Chloride 1,000 ml @ 125 mls/hr Q8H IV Last administered on 08/01/17 08 :46; Start 07/31/17 at 23:01; Stop 08/01/17 at 12:28; Status DC Insulin Aspart (NovoLOG) 0-9 UNITS TIDWMEALS SQ ; Start 08/01/17 at 08:00 Dextrose (Dextrose 50%-Water Syringe) 12.5 gm PRN Q15MIN PRN IV SEE COMMENTS; Start 07/31/17 at 23:30 Lisinopril (Prinivil) 20 mg DAILY PO Last administered on 08/02/17 08:47; Start 08/01/17 at 15:00 Pantoprazole Sodium (Protonix) 40 mg DAILY PO Last administered on 08/02/17 08 :47; Start 08/01/17 at 16:30 Simvastatin (Zocor) 40 mg QHS PO Last administered on 08/01/17 20:54; Start at 21:00 Metoprolol Tartrate (Lopressor) 12.5 mg BID PO Last administered on 08/01/17 15:45; Start 08/01/17 at 14:30; Stop 08/01/17 at 17:20; Status DC Aspirin (Ecotrin) 81 mg DAILYWBKFT PO Last administered on 08/02/17 07:41; Start 08/01/17 at 15:00 Donepezil HCl (Aricept) 5 mg QHS PO Last administered on 08/01/17 20:54; Start 08/01/17 at 21:00 Levothyroxine Sodium (Synthroid) 100 mcg DAILYAC PO Last administered on 07:41; Start 08/02/17 at 07:30 Memantine (Namenda) 5 mg BID PO Last administered on 08/02/17 08:47; Start at 21:00 Linagliptin (Tradjenta) 5 mg DAILY PO Last administered on 08/02/17 08:47; Start 08/02/17 at 09:00 Hydralazine HCl (Apresoline) 10 mg PRN Q4HRS PRN IVP ELEVATED BP, SEE COMMENTS ; Start 08/01/17 at 17:15 Pneumococcal Polyvalent Vaccine (Pneumovax 23) 0.5 ml ONCE ONCE VAX IM ; Start 08/01/17 at 21:00; Stop 08/01/17 at 21:01; Status DC Influenza Virus Vaccine Quadrival (Fluarix Quad [id number] Syringe) 0.5 ml ONCE ONCE VAX IM ; Start 08/01/17 at 21:00; Stop 08/01/17 at 21:01; Status DC Active Scripts Active Reported Clopidogrel (Clopidogrel Bisulfate) 75 Mg Tablet 1 Tab PO DAILY Namenda Xr (Memantine Hcl) 14 Mg Cap.spr.24 14 Mg PO DAILY Metoprolol Tartrate 25 Mg Tablet 1 Tab PO BID Lisinopril 20 Mg Tablet 1 Tab PO DAILY Januvia (Sitagliptin Phosphate) 100 Mg Tablet 1 Tab PO DAILY Losartan Potassium 100 Mg Tablet 100 Mg PO DAILY Levothyroxine Sodium 100 Mcg Tablet 1 Tab PO DAILY Simvastatin 40 Mg Tablet 1 Tab PO QHS Alendronate Sodium 70 Mg Tablet 1 Tab PO WEEKLY Aricept (Donepezil Hcl) 5 Mg Tablet 1 Tab PO QHS Pantoprazole Sodium 40 Mg Tablet.dr 1 Tab PO DAILY Hydrocodone-Apap 7.5-325 (Hydrocodone Bit/Acetaminophen) 1 Each Tablet 1 Tab PO PRN Q8HRS PRN Vitals/I & O Vital Sign - Last 24 Hours 08/01/17 08/01/17 08/01/17 08/01/17 15:09 15:43 15:45 19:00 Temp 98.3 98.5 98.3 98.5 Pulse 64 67 67 70 Resp 20 20 B/P (MAP) 163/65 (97) 163/65 163/65 143/67 (92) 144/60 (88) 126/46 (72) Pulse Ox 97 94 O2 Delivery Room Air Room Air 08/01/17 08/01/17 08/02/17 08/02/17 20:00 23:00 03:00 07:00 Temp 98.4 98.1 97.5 98.4 98.1 97.5 Pulse 63 57 58 Resp 20 20 16 B/P (MAP) 122/49 (73) 138/61 (86) 125/49 (74) Pulse Ox 95 94 93 O2 Delivery Room Air Room Air Room Air Room Air 08/02/17 08/02/17 08/02/17 07:30 08:47 11:04 Temp 97.7 97.7 Pulse 58 60 Resp 16 B/P (MAP) 125/49 133/54 (80) Pulse Ox 93 O2 Delivery Room Air Room Air CHUN MUNROE III DO Aug 02, 2017 12:31
[2017-08-02 15:00] VITALS: BP 122/47
[2017-08-02 19:00] VITALS: BP 144/89
[2017-08-02] MEDS: SIMVASTATIN 40 MG TABLET. PO SCH (20:25)
[2017-08-02] MEDS: DONEPEZIL HCL 5 MG TABLET. PO SCH (20:25)
[2017-08-02 23:00] VITALS: BP 155/67
[2017-08-03 03:00] VITALS: BP 160/69
[2017-08-03 06:19] LABS: BASO # 0.1 x10^3/uL (0.0-0.2); BASO % 1 % (0-3); EOS % 1 % (0-3); HEMATOCRIT 29.9 % (36.0-47.0); LYMPH # 2.5 x10^3/uL (1.0-4.8); LYMPH % 27 % (24-48); MEAN CORPUSCULAR HEMOGLOBIN 32 pg (25-35); MEAN CORPUSCULAR HGB CONC 33 g/dL (31-37); MEAN CORPUSCULAR VOLUME 96 fL (79-100); MONO % 11 % (0-9); NEUT % 60 % (31-73); PLATELET COUNT 208 x10^3/uL (140-400); RED CELL DISTRIBUTION WIDTH 14.3 % (11.5-14.5); WHITE BLOOD COUNT 9.4 x10^3/uL (4.0-11.0)
[2017-08-03 06:38] LABS: CALCIUM 8.6 mg/dL (8.5-10.1); CREATININE 1.7 mg/dL (0.6-1.0); GFR 28.6; POTASSIUM 4.4 mmol/L (3.5-5.1)
[2017-08-03 07:00] VITALS: BP 135/59
[2017-08-03] MEDS: MEMANTINE 5 MG TABLET. PO SCH ×2 (07:49→20:31)
[2017-08-03] MEDS: LINAGLIPTIN 5 MG TABLET PO SCH (07:49)
[2017-08-03] MEDS: ASPIRIN ENTERIC COATED 81 MG TABLET.DR. PO SCH (07:49)
[2017-08-03] MEDS: PANTOPRAZOLE 40 MG TABLET.DR. PO SCH (07:49)
[2017-08-03] MEDS: LISINOPRIL 20 MG TABLET PO SCH (07:49)
[2017-08-03] MEDS: LEVOTHYROXINE 112 MCG TABLET PO SCH (07:50)
[2017-08-03] MEDS: INSULIN ASPART 300 UNITS/3 ML INSULN.PEN SQ SCH ×3 (07:53→16:56)
--- NOTE | 2017-08-03 10:47 | PDOC2 ---
CONSULT Date of Consult Date of Consult DATE: 08/03/17 TIME: 10:38 Reason for Consult Reason for Consult: Carotid stenosis History of Present Illness Reason for Visit: This is a very pleasant 87-year-old female who states that she was taking out the trash and bent over to picker / packer the second bag of trash and then fell to the ground. She denies any loss of consciousness but just felt dizzy and went to the ground. She denies any symptoms of weakness in her arms and legs proceeding the event and after the event. She denies any problems with speech, drooping of the face, or blindness in the eye. She has had problems with dizziness in the past which seems related to postural changes. Past Medical History Cardiovascular: CAD, CHF, HTN, MS, Hyperlipidemia Pulmonary: No pertinent hx CENTRAL NERVOUS SYSTEM: CVA, Dementia (alzheimers) GI: GERD Heme/Onc: No pertinent hx Psych: No pertinent hx Musculoskeletal: Osteoarthritis Infectious disease: No pertinent hx ENT: Allergic Rhinitis, Other ([facility]) Renal/: No pertinent hx Endocrine: Diabetes (2), Hypothyroidism Dermatology: No pertinent hx Past Surgical History Past Surgical History: Cholecystectomy, Total knee replacement (right), Hysterectomy, Other (PTCA) Family History Family History: Coronary Ar[facility] Social History No ALCOHOL: none Drugs: None Lives: with Family Current Problem List Problem List Problems Medical Problems: (1) Abrasion Status: Acute (2) Dehydration Status: Acute (3) Dizziness Status: Acute (4) Head injury Status: Acute (5) Hematoma Status: Acute Current Medications Current Medications Current Medications Acetaminophen/ Hydrocodone Bitart (Lortab 5/325) 1 tab 1X ONCE PO Last administered on 07/31/17 20:25; Start 07/31/17 at 20:00; Stop 07/31/17 at 20:12 ; Status DC Ibuprofen (Motrin) 400 mg 1X ONCE PO ; Start 07/31/17 at 22:00; Stop 07/31/17 at 22:01; Status DC Sodium Chloride 500 ml @ 500 mls/hr 1X ONCE IV Last administered on 22:23; Start 07/31/17 at 22:00; Stop 07/31/17 at 23:01; Status DC Ondansetron HCl (Zofran) 4 mg PRN Q8HRS PRN IV NAUSEA/VOMITING; Start 07/31/17 at 23:15; Stop 08/01/17 at 23:14; Status DC Sodium Chloride 1,000 ml @ 125 mls/hr Q8H IV Last administered on 08/01/17 08 :46; Start 07/31/17 at 23:01; Stop 08/01/17 at 12:28; Status DC Insulin Aspart (NovoLOG) 0-9 UNITS TIDWMEALS SQ ; Start 08/01/17 at 08:00 Dextrose (Dextrose 50%-Water Syringe) 12.5 gm PRN Q15MIN PRN IV SEE COMMENTS; Start 07/31/17 at 23:30 Lisinopril (Prinivil) 20 mg DAILY PO Last administered on 08/03/17 07:49; Start 08/01/17 at 15:00 Pantoprazole Sodium (Protonix) 40 mg DAILY PO Last administered on 08/03/17 07 :49; Start 08/01/17 at 16:30 Simvastatin (Zocor) 40 mg QHS PO Last administered on 08/02/17 20:25; Start at 21:00 Metoprolol Tartrate (Lopressor) 12.5 mg BID PO Last administered on 08/01/17 15:45; Start 08/01/17 at 14:30; Stop 08/01/17 at 17:20; Status DC Aspirin (Ecotrin) 81 mg DAILYWBKFT PO Last administered on 08/03/17 07:49; Start 08/01/17 at 15:00 Donepezil HCl (Aricept) 5 mg QHS PO Last administered on 08/02/17 20:25; Start 08/01/17 at 21:00 Levothyroxine Sodium (Synthroid) 100 mcg DAILYAC PO Last administered on 07:41; Start 08/02/17 at 07:30; Stop 08/02/17 at 12:24; Status DC Memantine (Namenda) 5 mg BID PO Last administered on 08/03/17 07:49; Start at 21:00 Linagliptin (Tradjenta) 5 mg DAILY PO Last administered on 08/03/17 07:49; Start 08/02/17 at 09:00 Hydralazine HCl (Apresoline) 10 mg PRN Q4HRS PRN IVP ELEVATED BP, SEE COMMENTS ; Start 08/01/17 at 17:15 Pneumococcal Polyvalent Vaccine (Pneumovax 23) 0.5 ml ONCE ONCE VAX IM ; Start 08/01/17 at 21:00; Stop 08/01/17 at 21:01; Status DC Influenza Virus Vaccine Quadrival (Fluarix Quad [id number] Syringe) 0.5 ml ONCE ONCE VAX IM ; Start 08/01/17 at 21:00; Stop 08/01/17 at 21:01; Status DC Levothyroxine Sodium (Synthroid) 112 mcg DAILY07 PO Last administered on t 07:50; Start 08/03/17 at 07:00 Active Scripts Active Reported Clopidogrel (Clopidogrel Bisulfate) 75 Mg Tablet 1 Tab PO DAILY Namenda Xr (Memantine Hcl) 14 Mg Cap.spr.24 14 Mg PO DAILY Metoprolol Tartrate 25 Mg Tablet 1 Tab PO BID Lisinopril 20 Mg Tablet 1 Tab PO DAILY Januvia (Sitagliptin Phosphate) 100 Mg Tablet 1 Tab PO DAILY Losartan Potassium 100 Mg Tablet 100 Mg PO DAILY Levothyroxine Sodium 100 Mcg Tablet 1 Tab PO DAILY Simvastatin 40 Mg Tablet 1 Tab PO QHS Alendronate Sodium 70 Mg Tablet 1 Tab PO WEEKLY Aricept (Donepezil Hcl) 5 Mg Tablet 1 Tab PO QHS Pantoprazole Sodium 40 Mg Tablet. 1 Tab PO DAILY Hydrocodone-Apap 7.5-325 (Hydrocodone Bit/Acetaminophen) 1 Each Tablet 1 Tab PO PRN Q8HRS PRN Allergies Allergies: Coded Allergies: ibuprofen (Verified Allergy, Intermediate, 07/31/17) acetaminophen (Verified Allergy, Mild, 07/31/17) propoxyphene (Verified Adverse Reaction, Mild, N/V, 07/31/17) ROS Neurological: Yes Behavorial Changes, Yes Bowel/Bladder ControlChng, Yes Confusion, Yes Dizziness, Yes Gait Disturbance, Yes Headaches, Yes Impaired Coord/balance, Yes Memory Loss, Yes Numbness/Tingling, Yes Seizures, Yes Speech Problems, Yes Tremors, Yes Visual Changes, Yes Weakness, Yes Other Physical Exam General: Alert, Oriented X3, Cooperative, No acute distress HEENT: EOMI, Other (ecchymosis of the right face and orbit with small laceration above the right eye) Lungs: Clear to auscultation, Normal air movement Heart: Regular rate, Normal S1, Normal S2, No murmurs Abdomen: Normal bowel sounds, Soft, No tenderness Extremities: No clubbing, No cyanosis, No edema, Normal pulses Skin: No rashes, No breakdown, No significant lesion Neuro: Normal speech, Strength at 5/5 X4 ext, Sensation intact, Cranial nerves 3-12 NL Psych/Mental Status: Mental status NL, Mood NL MUSCULOSKELETAL: No deformity, No swelling Vitals VITALS Vital Signs Date Time Temp Pulse Resp B/P (MAP) Pulse Ox O2 Delivery O2 Flow Rate FiO2 08/03/17 07:49 71 160/69 08/03/17 07:40 Room Air 08/03/17 07:00 98.4 16 95 98.4 Labs Labs Laboratory Tests Test 08/01/17 11:26 08/01/17 16:47 08/01/17 21:42 08/02/17 05:00 Glucose (Fingerstick) 126 mg/dL (70-99) 107 mg/dL (70-99) 193 mg/dL (70-99) Sodium Level 142 mmol/L (136-145) Potassium Level 4.5 mmol/L (3.5-5.1) Chloride Level 109 mmol/L (98-107) Carbon Dioxide Level 25 mmol/L (21-32) Anion Gap 8 (6-14) Blood Urea Nitrogen 28 mg/dL (7-20) Creatinine 1.6 mg/dL (0.6-1.0) Estimated GFR (Cockcroft-Gault) 30.6 Glucose Level 124 mg/dL (70-99) Hemoglobin A1c 6.5 % (4.8-5.6) Calcium Level 8.6 mg/dL (8.5-10.1) Triglycerides Level 222 mg/dL (0-150) Cholesterol Level 157 mg/dL (0-200) LDL Cholesterol, Calculated 75 mg/dL (0-100) VLDL Cholesterol, Calculated 44 mg/dL (0-40) Non-HDL Cholesterol Calculated 119 mg/dL (0-129) HDL Cholesterol 38 mg/dL (40-60) Cholesterol/HDL Ratio 4.1 Thyroid Stimulating Hormone (TSH) 24.805 uIU/mL (0.358-3.74) Test 08/02/17 07:33 08/02/17 11:31 08/02/17 16:01 08/02/17 21:00 Glucose (Fingerstick) 112 mg/dL (70-99) 111 mg/dL (70-99) 129 mg/dL (70-99) 113 mg/dL (70-99) Test 08/03/17 05:55 08/03/17 07:24 White Blood Count 9.4 x10^3/uL (4.0-11.0) Red Blood Count 3.10 x10^6/uL (3.50-5.40) Hemoglobin 10.0 g/dL (12.0-15.5) Hematocrit 29.9 % (36.0-47.0) Mean Corpuscular Volume 96 fL (79-100) Mean Corpuscular Hemoglobin 32 pg (25-35) Mean Corpuscular Hemoglobin Concent 33 g/dL (31-37) Red Cell Distribution Width 14.3 % (11.5-14.5) Platelet Count 208 x10^3/uL (140-400) Neutrophils (%) (Auto) 60 % (31-73) Lymphocytes (%) (Auto) 27 % (24-48) Monocytes (%) (Auto) 11 % (0-9) Eosinophils (%) (Auto) 1 % (0-3) Basophils (%) (Auto) 1 % (0-3) Neutrophils # (Auto) 5.6 x10^3uL (1.8-7.7) Lymphocytes # (Auto) 2.5 x10^3/uL (1.0-4.8) Monocytes # (Auto) 1.0 x10^3/uL (0.0-1.1) Eosinophils # (Auto) 0.1 x10^3/uL (0.0-0.7) Basophils # (Auto) 0.1 x10^3/uL (0.0-0.2) Sodium Level 141 mmol/L (136-145) Potassium Level 4.4 mmol/L (3.5-5.1) Chloride Level 108 mmol/L (98-107) Carbon Dioxide Level 26 mmol/L (21-32) Anion Gap 7 (6-14) Blood Urea Nitrogen 28 mg/dL (7-20) Creatinine 1.7 mg/dL (0.6-1.0) Estimated GFR (Cockcroft-Gault) 28.6 Glucose Level 109 mg/dL (70-99) Calcium Level 8.6 mg/dL (8.5-10.1) Glucose (Fingerstick) 106 mg/dL (70-99) Laboratory Tests Test 08/02/17 11:31 08/02/17 16:01 08/02/17 21:00 08/03/17 05:55 Glucose (Fingerstick) 111 mg/dL (70-99) 129 mg/dL (70-99) 113 mg/dL (70-99) White Blood Count 9.4 x10^3/uL (4.0-11.0) Red Blood Count 3.10 x10^6/uL (3.50-5.40) Hemoglobin 10.0 g/dL (12.0-15.5) Hematocrit 29.9 % (36.0-47.0) Mean Corpuscular Volume 96 fL (79-100) Mean Corpuscular Hemoglobin 32 pg (25-35) Mean Corpuscular Hemoglobin Concent 33 g/dL (31-37) Red Cell Distribution Width 14.3 % (11.5-14.5) Platelet Count 208 x10^3/uL (140-400) Neutrophils (%) (Auto) 60 % (31-73) Lymphocytes (%) (Auto) 27 % (24-48) Monocytes (%) (Auto) 11 % (0-9) Eosinophils (%) (Auto) 1 % (0-3) Basophils (%) (Auto) 1 % (0-3) Neutrophils # (Auto) 5.6 x10^3uL (1.8-7.7) Lymphocytes # (Auto) 2.5 x10^3/uL (1.0-4.8) Monocytes # (Auto) 1.0 x10^3/uL (0.0-1.1) Eosinophils # (Auto) 0.1 x10^3/uL (0.0-0.7) Basophils # (Auto) 0.1 x10^3/uL (0.0-0.2) Sodium Level 141 mmol/L (136-145) Potassium Level 4.4 mmol/L (3.5-5.1) Chloride Level 108 mmol/L (98-107) Carbon Dioxide Level 26 mmol/L (21-32) Anion Gap 7 (6-14) Blood Urea Nitrogen 28 mg/dL (7-20) Creatinine 1.7 mg/dL (0.6-1.0) Estimated GFR (Cockcroft-Gault) 28.6 Glucose Level 109 mg/dL (70-99) Calcium Level 8.6 mg/dL (8.5-10.1) Test 08/03/17 07:24 Glucose (Fingerstick) 106 mg/dL (70-99) Assessment/Plan Assessment/Plan Asymptomatic right internal carotid artery stenosis--I did review the carotid duplex which reveals moderately elevated velocities in the right internal carotid artery with an ICA to CCA ratio of 3.4. The right vertebral artery demonstrates retrograde flow likely due to a asymptomatic right subclavian artery stenosis. I do not think that the patient's events are related to carotid artery stenosis as the carotid arteries rarely cause near syncope, or syncope. This was likely related to postural changes which could be from orthostatic blood pressures, versus transient arrhythmia. I will see the patient back in my office in 6 months with a repeat carotid ultrasound to monitor her status. All questions were answered to her satisfaction regarding this condition. I would recommend she continue her aspirin therapy and therapy with intensive statins. Her goal LDL level should be less than 70. From a vascular surgery standpoint, we will sign off. If there are any questions or concerns regarding her care or management, please do not hesitate to contact us. YON FLOYD DO Aug 03, 2017 10:47
[2017-08-03 11:00] VITALS: BP 165/69
--- NOTE | 2017-08-03 12:24 | PDOC2 ---
CONSULT Date of Consult Date of Consult DATE: 08/03/17 TIME: 12:18 Reason for Consult Reason for Consult: RENAL FAILURE Referring Physician Referring Physician: MICHAELLE Identification/Chief Complaint Chief Complaint FALL Problems: Source Source: Chart review History of Present Illness Reason for Visit: THIS IS AN 87 YR OLD ADMITTED AFTER SHE HAD A FALL. APPARENTLY FELL DOWN SHE LEANED OVER. SHE IS NOTED TO HAVE A CR OF 1.6-1.8. HX OF DM II AND HTN. HER UA IS WNL. NO NSAID USE NOTED. MEDS REVIEWED. SHE IS NOT ABLE TO PROVIDE A PROPER HX Past Medical History Cardiovascular: CAD, CHF, HTN, MD, Hyperlipidemia Pulmonary: No pertinent hx CENTRAL NERVOUS SYSTEM: CVA, Dementia (alzheimers) GI: GERD Heme/Onc: No pertinent hx Psych: No pertinent hx Musculoskeletal: Osteoarthritis Infectious disease: No pertinent hx ENT: Allergic Rhinitis, Other ([place]) Renal/: No pertinent hx Endocrine: Diabetes (2), Hypothyroidism Dermatology: No pertinent hx Past Surgical History Past Surgical History: Cholecystectomy, Total knee replacement (right), Hysterectomy, Other (PTCA) Family History [facility] History: [facility] Social History No ALCOHOL: none Drugs: None Lives: with Family Current Problem List Problem List Problems Medical Problems: (1) Abrasion Status: Acute (2) Dehydration Status: Acute (3) Dizziness Status: Acute (4) Head injury Status: Acute (5) Hematoma Status: Acute Current Medications Current Medications Current Medications Acetaminophen/ Hydrocodone Bitart (Lortab 5/325) 1 tab 1X ONCE PO Last administered on 07/31/17 20:25; Start 07/31/17 at 20:00; Stop 07/31/17 at 20:12 ; Status DC Ibuprofen (Motrin) 400 mg 1X ONCE PO ; Start 07/31/17 at 22:00; Stop 07/31/17 at 22:01; Status DC Sodium Chloride 500 ml @ 500 mls/hr 1X ONCE IV Last administered on 22:23; Start 07/31/17 at 22:00; Stop 07/31/17 at 23:01; Status DC Ondansetron HCl (Zofran) 4 mg PRN Q8HRS PRN IV NAUSEA/VOMITING; Start 07/31/17 at 23:15; Stop 08/01/17 at 23:14; Status DC Sodium Chloride 1,000 ml @ 125 mls/hr Q8H IV Last administered on 08/01/17 08 :46; Start 07/31/17 at 23:01; Stop 08/01/17 at 12:28; Status DC Insulin Aspart (NovoLOG) 0-9 UNITS TIDWMEALS SQ ; Start 08/01/17 at 08:00 Dextrose (Dextrose 50%-Water Syringe) 12.5 gm PRN Q15MIN PRN IV SEE COMMENTS; Start 07/31/17 at 23:30 Lisinopril (Prinivil) 20 mg DAILY PO Last administered on 08/03/17 07:49; Start 08/01/17 at 15:00 Pantoprazole Sodium (Protonix) 40 mg DAILY PO Last administered on 08/03/17 07 :49; Start 08/01/17 at 16:30 Simvastatin (Zocor) 40 mg QHS PO Last administered on 08/02/17 20:25; Start at 21:00 Metoprolol Tartrate (Lopressor) 12.5 mg BID PO Last administered on 08/01/17 15:45; Start 08/01/17 at 14:30; Stop 08/01/17 at 17:20; Status DC Aspirin (Ecotrin) 81 mg DAILYWBKFT PO Last administered on 08/03/17 07:49; Start 08/01/17 at 15:00 Donepezil HCl (Aricept) 5 mg QHS PO Last administered on 08/02/17 20:25; Start 08/01/17 at 21:00 Levothyroxine Sodium (Synthroid) 100 mcg DAILYAC PO Last administered on 07:41; Start 08/02/17 at 07:30; Stop 08/02/17 at 12:24; Status DC Memantine (Namenda) 5 mg BID PO Last administered on 08/03/17 07:49; Start at 21:00 Linagliptin (Tradjenta) 5 mg DAILY PO Last administered on 08/03/17 07:49; Start 08/02/17 at 09:00 Hydralazine HCl (Apresoline) 10 mg PRN Q4HRS PRN IVP ELEVATED BP, SEE COMMENTS Last administered on 08/03/17 12:01; Start 08/01/17 at 17:15 Pneumococcal Polyvalent Vaccine (Pneumovax 23) 0.5 ml ONCE ONCE VAX IM ; Start 08/01/17 at 21:00; Stop 08/01/17 at 21:01; Status DC Influenza Virus Vaccine Quadrival (Fluarix Quad [id number] Syringe) 0.5 ml ONCE ONCE VAX IM ; Start 08/01/17 at 21:00; Stop 08/01/17 at 21:01; Status DC Levothyroxine Sodium (Synthroid) 112 mcg DAILY07 PO Last administered on 07:50; Start 08/03/17 at 07:00 Active Scripts Active Reported Clopidogrel (Clopidogrel Bisulfate) 75 Mg Tablet 1 Tab PO DAILY Namenda Xr (Memantine Hcl) 14 Mg Cap.spr.24 14 Mg PO DAILY Metoprolol Tartrate 25 Mg Tablet 1 Tab PO BID Lisinopril 20 Mg Tablet 1 Tab PO DAILY Januvia (Sitagliptin Phosphate) 100 Mg Tablet 1 Tab PO DAILY Losartan Potassium 100 Mg Tablet 100 Mg PO DAILY Levothyroxine Sodium 100 Mcg Tablet 1 Tab PO DAILY Simvastatin 40 Mg Tablet 1 Tab PO QHS Alendronate Sodium 70 Mg Tablet 1 Tab PO WEEKLY Aricept (Donepezil Hcl) 5 Mg Tablet 1 Tab PO QHS Pantoprazole Sodium 40 Mg Tablet.dr 1 Tab PO DAILY Hydrocodone-Apap 7.5-325 (Hydrocodone Bit/Acetaminophen) 1 Each Tablet 1 Tab PO PRN Q8HRS PRN Allergies Allergies: Coded Allergies: ibuprofen (Verified Allergy, Intermediate, 07/31/17) acetaminophen (Verified Allergy, Mild, 07/31/17) propoxyphene (Verified Adverse Reaction, Mild, N/V, 07/31/17) ROS Review of System NOT ABLE TO OBTAIN, UNRELIABLE Physical Exam General: Alert, Cooperative, No acute distress HEENT: Atraumatic, PERRLA Lungs: Clear to auscultation Heart: Regular rate, Normal S1, Normal S2 Abdomen: Normal bowel sounds, Soft Extremities: No clubbing Skin: No breakdown Neuro: Other (NO ASYMMETRY) Psych/Mental Status: Other (FLAT AFFECT) Vitals VITALS Vital Signs Date Time Temp Pulse Resp B/P (MAP) Pulse Ox O2 Delivery O2 Flow Rate FiO2 08/03/17 12:01 70 165/69 08/03/17 11:00 98.5 16 96 Room Air 98.5 Labs Labs Laboratory Tests Test 08/01/17 16:47 08/01/17 21:42 08/02/17 05:00 08/02/17 07:33 Glucose (Fingerstick) 107 mg/dL (70-99) 193 mg/dL (70-99) 112 mg/dL (70-99) Sodium Level 142 mmol/L (136-145) Potassium Level 4.5 mmol/L (3.5-5.1) Chloride Level 109 mmol/L (98-107) Carbon Dioxide Level 25 mmol/L (21-32) Anion Gap 8 (6-14) Blood Urea Nitrogen 28 mg/dL (7-20) Creatinine 1.6 mg/dL (0.6-1.0) Estimated GFR (Cockcroft-Gault) 30.6 Glucose Level 124 mg/dL (70-99) Hemoglobin A1c 6.5 % (4.8-5.6) Calcium Level 8.6 mg/dL (8.5-10.1) Triglycerides Level 222 mg/dL (0-150) Cholesterol Level 157 mg/dL (0-200) LDL Cholesterol, Calculated 75 mg/dL (0-100) VLDL Cholesterol, Calculated 44 mg/dL (0-40) Non-HDL Cholesterol Calculated 119 mg/dL (0-129) HDL Cholesterol 38 mg/dL (40-60) Cholesterol/HDL Ratio 4.1 Thyroid Stimulating Hormone (TSH) 24.805 uIU/mL (0.358-3.74) Test 08/02/17 11:31 08/02/17 16:01 08/02/17 21:00 08/03/17 05:55 Glucose (Fingerstick) 111 mg/dL (70-99) 129 mg/dL (70-99) 113 mg/dL (70-99) White Blood Count 9.4 x10^3/uL (4.0-11.0) Red Blood Count 3.10 x10^6/uL (3.50-5.40) Hemoglobin 10.0 g/dL (12.0-15.5) Hematocrit 29.9 % (36.0-47.0) Mean Corpuscular Volume 96 fL (79-100) Mean Corpuscular Hemoglobin 32 pg (25-35) Mean Corpuscular Hemoglobin Concent 33 g/dL (31-37) Red Cell Distribution Width 14.3 % (11.5-14.5) Platelet Count 208 x10^3/uL (140-400) Neutrophils (%) (Auto) 60 % (31-73) Lymphocytes (%) (Auto) 27 % (24-48) Monocytes (%) (Auto) 11 % (0-9) Eosinophils (%) (Auto) 1 % (0-3) Basophils (%) (Auto) 1 % (0-3) Neutrophils # (Auto) 5.6 x10^3uL (1.8-7.7) Lymphocytes # (Auto) 2.5 x10^3/uL (1.0-4.8) Monocytes # (Auto) 1.0 x10^3/uL (0.0-1.1) Eosinophils # (Auto) 0.1 x10^3/uL (0.0-0.7) Basophils # (Auto) 0.1 x10^3/uL (0.0-0.2) Sodium Level 141 mmol/L (136-145) Potassium Level 4.4 mmol/L (3.5-5.1) Chloride Level 108 mmol/L (98-107) Carbon Dioxide Level 26 mmol/L (21-32) Anion Gap 7 (6-14) Blood Urea Nitrogen 28 mg/dL (7-20) Creatinine 1.7 mg/dL (0.6-1.0) Estimated GFR (Cockcroft-Gault) 28.6 Glucose Level 109 mg/dL (70-99) Calcium Level 8.6 mg/dL (8.5-10.1) Test 08/03/17 07:24 08/03/17 11:23 Glucose (Fingerstick) 106 mg/dL (70-99) 91 mg/dL (70-99) Laboratory Tests Test 08/02/17 16:01 08/02/17 21:00 08/03/17 05:55 08/03/17 07:24 Glucose (Fingerstick) 129 mg/dL (70-99) 113 mg/dL (70-99) 106 mg/dL (70-99) White Blood Count 9.4 x10^3/uL (4.0-11.0) Red Blood Count 3.10 x10^6/uL (3.50-5.40) Hemoglobin 10.0 g/dL (12.0-15.5) Hematocrit 29.9 % (36.0-47.0) Mean Corpuscular Volume 96 fL (79-100) Mean Corpuscular Hemoglobin 32 pg (25-35) Mean Corpuscular Hemoglobin Concent 33 g/dL (31-37) Red Cell Distribution Width 14.3 % (11.5-14.5) Platelet Count 208 x10^3/uL (140-400) Neutrophils (%) (Auto) 60 % (31-73) Lymphocytes (%) (Auto) 27 % (24-48) Monocytes (%) (Auto) 11 % (0-9) Eosinophils (%) (Auto) 1 % (0-3) Basophils (%) (Auto) 1 % (0-3) Neutrophils # (Auto) 5.6 x10^3uL (1.8-7.7) Lymphocytes # (Auto) 2.5 x10^3/uL (1.0-4.8) Monocytes # (Auto) 1.0 x10^3/uL (0.0-1.1) Eosinophils # (Auto) 0.1 x10^3/uL (0.0-0.7) Basophils # (Auto) 0.1 x10^3/uL (0.0-0.2) Sodium Level 141 mmol/L (136-145) Potassium Level 4.4 mmol/L (3.5-5.1) Chloride Level 108 mmol/L (98-107) Carbon Dioxide Level 26 mmol/L (21-32) Anion Gap 7 (6-14) Blood Urea Nitrogen 28 mg/dL (7-20) Creatinine 1.7 mg/dL (0.6-1.0) Estimated GFR (Cockcroft-Gault) 28.6 Glucose Level 109 mg/dL (70-99) Calcium Level 8.6 mg/dL (8.5-10.1) Test 08/03/17 11:23 Glucose (Fingerstick) 91 mg/dL (70-99) Assessment/Plan Assessment/Plan IMP FALL DM II HTN CAD CAROTID ARTERY STENOSIS (RIGHT) PROB CKD-STABLE DEMENTIA PLAN CONT SAME LOW FLOW IVF'S PRIYANKA BLACKMAN MD Aug 03, 2017 12:23
--- NOTE | 2017-08-03 12:56 | PDOC ---
PROGRESS NOTES Chief Complaint Chief Complaint Dizziness Fall with head trauma PMH: CAD post stent placement PVD CVA DM HTN Alzheimer Disease CHF Hypothyroidism History of Present Illness History of Present Illness Pt was laying in bed and conversant. No new complaints at this time. Dr. Edmond was consulted due to elevated creatinine. Discussed possible D/C in the morning if ok with subspecialists. Vitals Vitals Vital Signs Date Time Temp Pulse Resp B/P (MAP) Pulse Ox O2 Delivery O2 Flow Rate FiO2 08/03/17 12:01 70 165/69 08/03/17 11:00 98.5 16 96 Room Air 98.5 Physical Exam General: Alert, Oriented X3, Cooperative, No acute distress Heart: Regular rate, Normal S1, Normal S2 Lungs: Clear Abdomen: Normal bowel sounds, Soft Extremities: No clubbing, No cyanosis Skin: No breakdown Labs LABS Laboratory Tests Test 08/02/17 16:01 08/02/17 21:00 08/03/17 05:55 08/03/17 07:24 Glucose (Fingerstick) 129 mg/dL (70-99) 113 mg/dL (70-99) 106 mg/dL (70-99) White Blood Count 9.4 x10^3/uL (4.0-11.0) Red Blood Count 3.10 x10^6/uL (3.50-5.40) Hemoglobin 10.0 g/dL (12.0-15.5) Hematocrit 29.9 % (36.0-47.0) Mean Corpuscular Volume 96 fL (79-100) Mean Corpuscular Hemoglobin 32 pg (25-35) Mean Corpuscular Hemoglobin Concent 33 g/dL (31-37) Red Cell Distribution Width 14.3 % (11.5-14.5) Platelet Count 208 x10^3/uL (140-400) Neutrophils (%) (Auto) 60 % (31-73) Lymphocytes (%) (Auto) 27 % (24-48) Monocytes (%) (Auto) 11 % (0-9) Eosinophils (%) (Auto) 1 % (0-3) Basophils (%) (Auto) 1 % (0-3) Neutrophils # (Auto) 5.6 x10^3uL (1.8-7.7) Lymphocytes # (Auto) 2.5 x10^3/uL (1.0-4.8) Monocytes # (Auto) 1.0 x10^3/uL (0.0-1.1) Eosinophils # (Auto) 0.1 x10^3/uL (0.0-0.7) Basophils # (Auto) 0.1 x10^3/uL (0.0-0.2) Sodium Level 141 mmol/L (136-145) Potassium Level 4.4 mmol/L (3.5-5.1) Chloride Level 108 mmol/L (98-107) Carbon Dioxide Level 26 mmol/L (21-32) Anion Gap 7 (6-14) Blood Urea Nitrogen 28 mg/dL (7-20) Creatinine 1.7 mg/dL (0.6-1.0) Estimated GFR (Cockcroft-Gault) 28.6 Glucose Level 109 mg/dL (70-99) Calcium Level 8.6 mg/dL (8.5-10.1) Test 08/03/17 11:23 Glucose (Fingerstick) 91 mg/dL (70-99) Review of Systems Review of Systems P complains of eye pain Pt complains of fatigue Pt complains of hunger Assessment and Plan Assessmemt and Plan Problems Medical Problems: (1) Abrasion Status: Acute (2) Dehydration Status: Acute (3) Dizziness Status: Acute (4) Head injury Status: Acute (5) Hematoma Status: Acute Dizziness Fall with head trauma PMH: CAD post stent placement PVD CVA DM HTN Alzheimer Disease CHF Hypothyroidism Plan: Consulted Dr. Edmond with nephrology Possible D/C tomorrow if ok with subspecialty recheck labs cont. medications Monitor BP PT/OT Appreciate subspecialty input Problems: Comment Review of Relevant I have reviewed the following items yesenia (where applicable) has been applied. Labs Laboratory Tests Test 08/01/17 16:47 08/01/17 21:42 08/02/17 05:00 08/02/17 07:33 Glucose (Fingerstick) 107 mg/dL (70-99) 193 mg/dL (70-99) 112 mg/dL (70-99) Sodium Level 142 mmol/L (136-145) Potassium Level 4.5 mmol/L (3.5-5.1) Chloride Level 109 mmol/L (98-107) Carbon Dioxide Level 25 mmol/L (21-32) Anion Gap 8 (6-14) Blood Urea Nitrogen 28 mg/dL (7-20) Creatinine 1.6 mg/dL (0.6-1.0) Estimated GFR (Cockcroft-Gault) 30.6 Glucose Level 124 mg/dL (70-99) Hemoglobin A1c 6.5 % (4.8-5.6) Calcium Level 8.6 mg/dL (8.5-10.1) Triglycerides Level 222 mg/dL (0-150) Cholesterol Level 157 mg/dL (0-200) LDL Cholesterol, Calculated 75 mg/dL (0-100) VLDL Cholesterol, Calculated 44 mg/dL (0-40) Non-HDL Cholesterol Calculated 119 mg/dL (0-129) HDL Cholesterol 38 mg/dL (40-60) Cholesterol/HDL Ratio 4.1 Thyroid Stimulating Hormone (TSH) 24.805 uIU/mL (0.358-3.74) Test 08/02/17 11:31 08/02/17 16:01 08/02/17 21:00 08/03/17 05:55 Glucose (Fingerstick) 111 mg/dL (70-99) 129 mg/dL (70-99) 113 mg/dL (70-99) White Blood Count 9.4 x10^3/uL (4.0-11.0) Red Blood Count 3.10 x10^6/uL (3.50-5.40) Hemoglobin 10.0 g/dL (12.0-15.5) Hematocrit 29.9 % (36.0-47.0) Mean Corpuscular Volume 96 fL (79-100) Mean Corpuscular Hemoglobin 32 pg (25-35) Mean Corpuscular Hemoglobin Concent 33 g/dL (31-37) Red Cell Distribution Width 14.3 % (11.5-14.5) Platelet Count 208 x10^3/uL (140-400) Neutrophils (%) (Auto) 60 % (31-73) Lymphocytes (%) (Auto) 27 % (24-48) Monocytes (%) (Auto) 11 % (0-9) Eosinophils (%) (Auto) 1 % (0-3) Basophils (%) (Auto) 1 % (0-3) Neutrophils # (Auto) 5.6 x10^3uL (1.8-7.7) Lymphocytes # (Auto) 2.5 x10^3/uL (1.0-4.8) Monocytes # (Auto) 1.0 x10^3/uL (0.0-1.1) Eosinophils # (Auto) 0.1 x10^3/uL (0.0-0.7) Basophils # (Auto) 0.1 x10^3/uL (0.0-0.2) Sodium Level 141 mmol/L (136-145) Potassium Level 4.4 mmol/L (3.5-5.1) Chloride Level 108 mmol/L (98-107) Carbon Dioxide Level 26 mmol/L (21-32) Anion Gap 7 (6-14) Blood Urea Nitrogen 28 mg/dL (7-20) Creatinine 1.7 mg/dL (0.6-1.0) Estimated GFR (Cockcroft-Gault) 28.6 Glucose Level 109 mg/dL (70-99) Calcium Level 8.6 mg/dL (8.5-10.1) Test 08/03/17 07:24 08/03/17 11:23 Glucose (Fingerstick) 106 mg/dL (70-99) 91 mg/dL (70-99) Laboratory Tests Test 08/02/17 16:01 08/02/17 21:00 08/03/17 05:55 08/03/17 07:24 Glucose (Fingerstick) 129 mg/dL (70-99) 113 mg/dL (70-99) 106 mg/dL (70-99) White Blood Count 9.4 x10^3/uL (4.0-11.0) Red Blood Count 3.10 x10^6/uL (3.50-5.40) Hemoglobin 10.0 g/dL (12.0-15.5) Hematocrit 29.9 % (36.0-47.0) Mean Corpuscular Volume 96 fL (79-100) Mean Corpuscular Hemoglobin 32 pg (25-35) Mean Corpuscular Hemoglobin Concent 33 g/dL (31-37) Red Cell Distribution Width 14.3 % (11.5-14.5) Platelet Count 208 x10^3/uL (140-400) Neutrophils (%) (Auto) 60 % (31-73) Lymphocytes (%) (Auto) 27 % (24-48) Monocytes (%) (Auto) 11 % (0-9) Eosinophils (%) (Auto) 1 % (0-3) Basophils (%) (Auto) 1 % (0-3) Neutrophils # (Auto) 5.6 x10^3uL (1.8-7.7) Lymphocytes # (Auto) 2.5 x10^3/uL (1.0-4.8) Monocytes # (Auto) 1.0 x10^3/uL (0.0-1.1) Eosinophils # (Auto) 0.1 x10^3/uL (0.0-0.7) Basophils # (Auto) 0.1 x10^3/uL (0.0-0.2) Sodium Level 141 mmol/L (136-145) Potassium Level 4.4 mmol/L (3.5-5.1) Chloride Level 108 mmol/L (98-107) Carbon Dioxide Level 26 mmol/L (21-32) Anion Gap 7 (6-14) Blood Urea Nitrogen 28 mg/dL (7-20) Creatinine 1.7 mg/dL (0.6-1.0) Estimated GFR (Cockcroft-Gault) 28.6 Glucose Level 109 mg/dL (70-99) Calcium Level 8.6 mg/dL (8.5-10.1) Test 08/03/17 11:23 Glucose (Fingerstick) 91 mg/dL (70-99) Microbiology 07/31/17 Urine Culture - Final, Complete 07/31/17 Urine Culture Result 1 (NBA) - Final, Complete Medications Current Medications Acetaminophen/ Hydrocodone Bitart (Lortab 5/325) 1 tab 1X ONCE PO Last administered on 07/31/17 20:25; Start 07/31/17 at 20:00; Stop 07/31/17 at 20:12 ; Status DC Ibuprofen (Motrin) 400 mg 1X ONCE PO ; Start 07/31/17 at 22:00; Stop 07/31/17 at 22:01; Status DC Sodium Chloride 500 ml @ 500 mls/hr 1X ONCE IV Last administered on 22:23; Start 07/31/17 at 22:00; Stop 07/31/17 at 23:01; Status DC Ondansetron HCl (Zofran) 4 mg PRN Q8HRS PRN IV NAUSEA/VOMITING; Start 07/31/17 at 23:15; Stop 08/01/17 at 23:14; Status DC Sodium Chloride 1,000 ml @ 125 mls/hr Q8H IV Last administered on 08/01/17 08 :46; Start 07/31/17 at 23:01; Stop 08/01/17 at 12:28; Status DC Insulin Aspart (NovoLOG) 0-9 UNITS TIDWMEALS SQ ; Start 08/01/17 at 08:00 Dextrose (Dextrose 50%-Water Syringe) 12.5 gm PRN Q15MIN PRN IV SEE COMMENTS; Start 07/31/17 at 23:30 Lisinopril (Prinivil) 20 mg DAILY PO Last administered on 08/03/17 07:49; Start 08/01/17 at 15:00 Pantoprazole Sodium (Protonix) 40 mg DAILY PO Last administered on 08/03/17 07 :49; Start 08/01/17 at 16:30 Simvastatin (Zocor) 40 mg QHS PO Last administered on 08/02/17 20:25; Start at 21:00 Metoprolol Tartrate (Lopressor) 12.5 mg BID PO Last administered on 08/01/17 15:45; Start 08/01/17 at 14:30; Stop 08/01/17 at 17:20; Status DC Aspirin (Ecotrin) 81 mg DAILYWBKFT PO Last administered on 08/03/17 07:49; Start 08/01/17 at 15:00 Donepezil HCl (Aricept) 5 mg QHS PO Last administered on 08/02/17 20:25; Start 08/01/17 at 21:00 Levothyroxine Sodium (Synthroid) 100 mcg DAILYAC PO Last administered on 07:41; Start 08/02/17 at 07:30; Stop 08/02/17 at 12:24; Status DC Memantine (Namenda) 5 mg BID PO Last administered on 08/03/17 07:49; Start at 21:00 Linagliptin (Tradjenta) 5 mg DAILY PO Last administered on 08/03/17 07:49; Start 08/02/17 at 09:00 Hydralazine HCl (Apresoline) 10 mg PRN Q4HRS PRN IVP ELEVATED BP, SEE COMMENTS Last administered on 08/03/17 12:01; Start 08/01/17 at 17:15 Pneumococcal Polyvalent Vaccine (Pneumovax 23) 0.5 ml ONCE ONCE VAX IM ; Start 08/01/17 at 21:00; Stop 08/01/17 at 21:01; Status DC Influenza Virus Vaccine Quadrival (Fluarix Quad [id number] Syringe) 0.5 ml ONCE ONCE VAX IM ; Start 08/01/17 at 21:00; Stop 08/01/17 at 21:01; Status DC Levothyroxine Sodium (Synthroid) 112 mcg DAILY07 PO Last administered on 07:50; Start 08/03/17 at 07:00 Sodium Chloride 1,000 ml @ 75 mls/hr [id number] IV ; Start 08/03/17 at 13:00 Active Scripts Active Reported Clopidogrel (Clopidogrel Bisulfate) 75 Mg Tablet 1 Tab PO DAILY Namenda Xr (Memantine Hcl) 14 Mg Cap.spr.24 14 Mg PO DAILY Metoprolol Tartrate 25 Mg Tablet 1 Tab PO BID Lisinopril 20 Mg Tablet 1 Tab PO DAILY Januvia (Sitagliptin Phosphate) 100 Mg Tablet 1 Tab PO DAILY Losartan Potassium 100 Mg Tablet 100 Mg PO DAILY Levothyroxine Sodium 100 Mcg Tablet 1 Tab PO DAILY Simvastatin 40 Mg Tablet 1 Tab PO QHS Alendronate Sodium 70 Mg Tablet 1 Tab PO WEEKLY Aricept (Donepezil Hcl) 5 Mg Tablet 1 Tab PO QHS Pantoprazole Sodium 40 Mg Tablet. 1 Tab PO DAILY Hydrocodone-Apap 7.5-325 (Hydrocodone Bit/Acetaminophen) 1 Each Tablet 1 Tab PO PRN Q8HRS PRN Vitals/I & O Vital Sign - Last 24 Hours 08/02/17 08/02/17 08/02/17 08/02/17 15:00 19:00 20:02 23:00 Temp 98.8 98.2 98.4 98.8 98.2 98.4 Pulse 67 67 66 Resp 18 18 16 B/P (MAP) 122/47 (72) 144/89 (107) 155/67 (96) Pulse Ox 95 98 94 O2 Delivery Room Air Room Air 08/03/17 08/03/17 08/03/17 08/03/17 03:00 07:00 07:40 07:49 Temp 97.6 98.4 97.6 98.4 Pulse 71 63 71 Resp 18 16 B/P (MAP) 160/69 (99) 135/59 (84) 160/69 Pulse Ox 94 95 O2 Delivery Room Air Room Air 08/03/17 08/03/17 11:00 12:01 Temp 98.5 98.5 Pulse 70 70 Resp 16 B/P (MAP) 165/69 (101) 165/69 Pulse Ox 96 O2 Delivery Room Air CHUN MUNROE III DO Aug 03, 2017 12:56
[2017-08-03] MEDS: IV NORMAL SALINE 1000ML BAG 1,000 ML IV SCH (13:50)
[2017-08-03 15:00] VITALS: BP 157/62
[2017-08-03 19:00] VITALS: BP 155/64
[2017-08-03] MEDS: SIMVASTATIN 40 MG TABLET. PO SCH (20:31)
[2017-08-03] MEDS: DONEPEZIL HCL 5 MG TABLET. PO SCH (20:32)
[2017-08-04] MEDS: IV NORMAL SALINE 1000ML BAG 1,000 ML IV SCH ×2 (02:20→15:25)
[2017-08-04 03:00] VITALS: BP 156/66
[2017-08-04 05:10] LABS: BASO # 0.1 x10^3/uL (0.0-0.2); BASO % 1 % (0-3); EOS % 1 % (0-3); HEMATOCRIT 29.7 % (36.0-47.0); HEMOGLOBIN 9.8 g/dL (12.0-15.5); LYMPH % 29 % (24-48); MEAN CORPUSCULAR HEMOGLOBIN 32 pg (25-35); MEAN CORPUSCULAR HGB CONC 33 g/dL (31-37); MEAN CORPUSCULAR VOLUME 97 fL (79-100); MONO % 10 % (0-9); NEUT % 59 % (31-73); PLATELET COUNT 202 x10^3/uL (140-400); RED BLOOD COUNT 3.05 x10^6/uL (3.50-5.40); RED CELL DISTRIBUTION WIDTH 14.5 % (11.5-14.5); WHITE BLOOD COUNT 10.1 x10^3/uL (4.0-11.0)
[2017-08-04] MEDS: LEVOTHYROXINE 112 MCG TABLET PO SCH (05:37)
[2017-08-04] MEDS: PANTOPRAZOLE 40 MG TABLET.DR. PO SCH (05:37)
[2017-08-04 06:02] LABS: CALCIUM 8.4 mg/dL (8.5-10.1); CREATININE 1.6 mg/dL (0.6-1.0); GFR 30.6; POTASSIUM 4.4 mmol/L (3.5-5.1)
[2017-08-04 07:00] VITALS: BP 178/76
[2017-08-04] MEDS: INSULIN ASPART 300 UNITS/3 ML INSULN.PEN SQ SCH ×2 (08:00→12:00)
[2017-08-04] MEDS: LISINOPRIL 20 MG TABLET PO SCH (08:58)
[2017-08-04] MEDS: ASPIRIN ENTERIC COATED 81 MG TABLET.DR. PO SCH (08:58)
[2017-08-04] MEDS: MEMANTINE 5 MG TABLET. PO SCH (08:58)
[2017-08-04] MEDS: LINAGLIPTIN 5 MG TABLET PO SCH (08:58)
[2017-08-04 11:00] VITALS: BP 146/68
--- NOTE | 2017-08-04 11:06 | PDOC ---
Renal-Progress Notes Subjective Notes Notes NONE History of Present Illness Hx of present illness NO CHANGE Vitals Vitals Vital Signs Date Time Temp Pulse Resp B/P (MAP) Pulse Ox O2 Delivery O2 Flow Rate FiO2 08/04/17 08:58 66 178/76 08/04/17 07:35 Room Air 08/04/17 07:00 97.7 18 96 97.7 Weight Weight [ ] Labs Labs Laboratory Tests Test 08/03/17 11:23 08/03/17 16:23 08/03/17 20:51 08/04/17 04:17 Glucose (Fingerstick) 91 mg/dL (70-99) 84 mg/dL (70-99) 132 mg/dL (70-99) White Blood Count 10.1 x10^3/uL (4.0-11.0) Red Blood Count 3.05 x10^6/uL (3.50-5.40) Hemoglobin 9.8 g/dL (12.0-15.5) Hematocrit 29.7 % (36.0-47.0) Mean Corpuscular Volume 97 fL (79-100) Mean Corpuscular Hemoglobin 32 pg (25-35) Mean Corpuscular Hemoglobin Concent 33 g/dL (31-37) Red Cell Distribution Width 14.5 % (11.5-14.5) Platelet Count 202 x10^3/uL (140-400) Neutrophils (%) (Auto) 59 % (31-73) Lymphocytes (%) (Auto) 29 % (24-48) Monocytes (%) (Auto) 10 % (0-9) Eosinophils (%) (Auto) 1 % (0-3) Basophils (%) (Auto) 1 % (0-3) Neutrophils # (Auto) 6.0 x10^3uL (1.8-7.7) Lymphocytes # (Auto) 3.0 x10^3/uL (1.0-4.8) Monocytes # (Auto) 1.0 x10^3/uL (0.0-1.1) Eosinophils # (Auto) 0.1 x10^3/uL (0.0-0.7) Basophils # (Auto) 0.1 x10^3/uL (0.0-0.2) Sodium Level 141 mmol/L (136-145) Potassium Level 4.4 mmol/L (3.5-5.1) Chloride Level 107 mmol/L (98-107) Carbon Dioxide Level 26 mmol/L (21-32) Anion Gap 8 (6-14) Blood Urea Nitrogen 29 mg/dL (7-20) Creatinine 1.6 mg/dL (0.6-1.0) Estimated GFR (Cockcroft-Gault) 30.6 Glucose Level 109 mg/dL (70-99) Calcium Level 8.4 mg/dL (8.5-10.1) Test 08/04/17 07:30 Glucose (Fingerstick) 105 mg/dL (70-99) Micro Micro Microbiology 07/31/17 Urine Culture - Final, Complete 07/31/17 Urine Culture Result 1 (NBA) - Final, Complete Review of Systems Constitutional: yes: alert Ears/Nose/Throat: Yes: no symptom reported Eyes: Yes: no symptom reported Cardiovascular: Yes no symptom reported Gastrointestional: Yes: no symptom reported Genitourinary: Yes: no symptom reported Musculoskeletal: Yes: no symptom reported Skin: Yes no symptom reported Psychiatric/Neurological: Yes: no symptom reported Endocrine: Yes: no symptom reported Physical Exam General Appearance: no apparent distress Respiratory: bilateral CTA Heart: S1S2, RRR Abdomen: soft, bowel sounds present Genitourinary: bladder flat Extremities: pulses present, atrophy Neurology: alert Musculoskeletal: Osteoarthritis Assessment Assessment IMP HTN UNCONTROLLED DM II DEMENTIA CKD STAGE 3-CR STABLE AT 1.6 RIGHT CAROTID ARTERY STENOSIS PLAN START NORVASC OK TO D/C FROM RENAL STANDPOINT PRIYANKA BLACKMAN MD Aug 04, 2017 11:06
[2017-08-04] MEDS ORDERED: amLODIPine BESYLATE 2.5 MG TABLET PO SCH (12:00)
--- NOTE | 2017-08-04 12:40 | PDOC ---
CARDIO Progress Notes Date and Time Date of Service 08/04/2017 Time of Evaluation 1210 Subjective Subjective: No Chest Pain, No shortness of breath, No Palpitations, No Dizziness Vitals Vitals Vital Signs Date Time Temp Pulse Resp B/P (MAP) Pulse Ox O2 Delivery O2 Flow Rate FiO2 08/04/17 08:58 66 178/76 08/04/17 07:35 Room Air 08/04/17 07:00 97.7 18 96 97.7 Weight Weight [ ] Laboratory Labs Laboratory Tests Test 08/03/17 16:23 08/03/17 20:51 08/04/17 04:17 08/04/17 07:30 Glucose (Fingerstick) 84 mg/dL (70-99) 132 mg/dL (70-99) 105 mg/dL (70-99) White Blood Count 10.1 x10^3/uL (4.0-11.0) Red Blood Count 3.05 x10^6/uL (3.50-5.40) Hemoglobin 9.8 g/dL (12.0-15.5) Hematocrit 29.7 % (36.0-47.0) Mean Corpuscular Volume 97 fL (79-100) Mean Corpuscular Hemoglobin 32 pg (25-35) Mean Corpuscular Hemoglobin Concent 33 g/dL (31-37) Red Cell Distribution Width 14.5 % (11.5-14.5) Platelet Count 202 x10^3/uL (140-400) Neutrophils (%) (Auto) 59 % (31-73) Lymphocytes (%) (Auto) 29 % (24-48) Monocytes (%) (Auto) 10 % (0-9) Eosinophils (%) (Auto) 1 % (0-3) Basophils (%) (Auto) 1 % (0-3) Neutrophils # (Auto) 6.0 x10^3uL (1.8-7.7) Lymphocytes # (Auto) 3.0 x10^3/uL (1.0-4.8) Monocytes # (Auto) 1.0 x10^3/uL (0.0-1.1) Eosinophils # (Auto) 0.1 x10^3/uL (0.0-0.7) Basophils # (Auto) 0.1 x10^3/uL (0.0-0.2) Sodium Level 141 mmol/L (136-145) Potassium Level 4.4 mmol/L (3.5-5.1) Chloride Level 107 mmol/L (98-107) Carbon Dioxide Level 26 mmol/L (21-32) Anion Gap 8 (6-14) Blood Urea Nitrogen 29 mg/dL (7-20) Creatinine 1.6 mg/dL (0.6-1.0) Estimated GFR (Cockcroft-Gault) 30.6 Glucose Level 109 mg/dL (70-99) Calcium Level 8.4 mg/dL (8.5-10.1) Test 08/04/17 11:23 Glucose (Fingerstick) 107 mg/dL (70-99) Microbiology Micro Microbiology 07/31/17 Urine Culture - Final, Complete 07/31/17 Urine Culture Result 1 (NBA) - Final, Complete Review of Systems Constitutional: yes: alert Ears/Nose/Throat: Yes: no symptom reported Eyes: Yes: no symptom reported Cardiovascular: Yes no symptom reported Gastrointestional: Yes: no symptom reported Genitourinary: Yes: no symptom reported Musculoskeletal: Yes: no symptom reported Skin: Yes no symptom reported Psychiatric/Neurological: Yes: no symptom reported Endocrine: Yes: no symptom reported Physical Exam HEENT: Neck Supple W Full Motion, Other (right periorbital contusion) Chest: Symmetric LUNGS: Clear to Auscultation Heart: S1S2, RRR (off tele, per staff no bradycardia) Abdomen: Soft N/T Extremities: No Calf Tenderness Neurology: alert, oriented, follow commands Assessment Assessment 1. Presyncope/ traumatic Mechanical fall: 2. CAD: PCI/stent >5yrs ago. No cardiac symptoms. Normal LVEF and wall motion by echo. 3. PAD - High-grade right proximal and mid internal carotid artery disease with reversal of flow in the vertebral artery on the right side suggestive of subclavian stenosis. No surgical plans per vascular. 4. Chronic diastolic CHF - compensated 5. Accelerated HTN: labile 6. DM per pcp Recommendations 1. Event monitor as an outpt. follow up in office afterwards. 2. Continue with secondary prevention. 3. Continue with lisinopril. Maintain PO hydration, agree with low dose norvasc. DILIA ODELL APRN Aug 04, 2017 12:40
--- NOTE | 2017-08-04 14:59 | PDOC3 ---
Discharge Summary [facility] Date of Admission: Jul 31, 2017 Discharge Date: Aug 04, 2017 Admitting Diagnosis Dizziness Fall with head trauma h/o CAD post stent placement PVD CVA DM HTN Alzheimer Disease CHF Hypothyroidism right carotid stenosis ckd 3-4 Problems: Final Diagnosis CONSULTS renal card Brief Hospital Course Ms. Wright is a 87 old F, was sent from home for fall, head CT neg, left face has some hematoma and eccymosis. Rt carotid A showed stenosis, vascular consulted ,no intervention, fu as outpt dc home with a walker dc time 35min General: Alert, Oriented X3, Cooperative, No acute distress Heart: Regular rate, Normal S1, Normal S2. left face some ecchymosis Lungs: Clear Abdomen: Normal bowel sounds, Soft Extremities: No clubbing, No cyanosis Skin: No breakdown Problems: Disposition home CONDITION AT DISCHARGE: Improved Diet cardiac Scheduled Alendronate Sodium (Alendronate Sodium), 1 TAB PO WEEKLY, (Reported) Clopidogrel Bisulfate (Clopidogrel), 1 TAB PO DAILY, (Reported) Donepezil Hcl (Aricept), 1 TAB PO QHS, (Reported) Levothyroxine Sodium (Levothyroxine Sodium), 1 TAB PO DAILY, (Reported) Lisinopril (Lisinopril), 1 TAB PO DAILY, (Reported) Losartan Potassium (Losartan Potassium), 100 MG PO DAILY, (Reported) Memantine Hcl (Namenda Xr), 14 MG PO DAILY, (Reported) Metoprolol Tartrate (Metoprolol Tartrate), 1 TAB PO BID, (Reported) Pantoprazole Sodium (Pantoprazole Sodium), 1 TAB PO DAILY, (Reported) Simvastatin (Simvastatin), 1 TAB PO QHS, (Reported) Sitagliptin Phosphate (Januvia), 1 TAB PO DAILY, (Reported) Scheduled PRN Hydrocodone Bit/Acetaminophen (Hydrocodone-Apap 7.5-325 ), 1 TAB PO PRN Q8HRS PRN for PAIN, (Reported) Discontinued Medications Clopidogrel Bisulfate (Clopidogrel), 1 TAB PO DAILY, (Reported) Loratadine (Loratadine), 1 TAB PO DAILY, (Reported) Memantine Hcl (Namenda), 10 MG PO DAILY, (Reported) Montelukast Sodium (Montelukast Sodium Tablet), 1 TAB PO DAILY, (Reported) Follow Up pcp in 2 weeks JACKELYN CHICAS MD Aug 04, 2017 14:59
[2017-08-04 15:00] VITALS: BP 143/78
[2017-08-04] MEDS ORDERED: ATORVASTATIN CALCIUM 20 MG TABLET PO SCH (21:00)
[2017-08-05] MEDS ORDERED: amLODIPine BESYLATE 5 MG TABLET PO SCH (09:00)
== END 2017-08-04 16:05 | disposition home or self-care (01) | DRG 68 ==
LOC: ER 19:22 → 4 NORTH 22:21
PROVIDERS: ADMIT Internal Medicine Hematology & Oncology; ATTEND Internal Medicine Hematology & Oncology
DX: I65.21 Occlusion and stenosis of right carotid artery (principal); N18.4 Chronic kidney disease, stage 4 (severe); I13.0 Hypertensive heart and chronic kidney disease with heart failure and stage 1 through stage 4 chronic kidney disease, or unspecified chronic kidney disease; E11.22 Type 2 diabetes mellitus with diabetic chronic kidney disease; I50.32 Chronic diastolic (congestive) heart failure; S09.90XA Unspecified injury of head, initial encounter; E86.0 Dehydration; S00.11XA Contusion of right eyelid and periocular area, initial encounter; W01.0XXA Fall on same level from slipping, tripping and stumbling without subsequent striking against object, initial encounter; E11.51 Type 2 diabetes mellitus with diabetic peripheral angiopathy without gangrene; E03.9 Hypothyroidism, unspecified; E11.649 Type 2 diabetes mellitus with hypoglycemia without coma; E78.5 Hyperlipidemia, unspecified; F02.80 Dementia in other diseases classified elsewhere, unspecified severity, without behavioral disturbance, psychotic disturbance, mood disturbance, and anxiety; G30.9 Alzheimer's disease, unspecified; I25.10 Atherosclerotic heart disease of native coronary artery without angina pectoris; I70.8 Atherosclerosis of other arteries; K21.9 Gastro-esophageal reflux disease without esophagitis; M81.0 Age-related osteoporosis without current pathological fracture; Z96.651 Presence of right artificial knee joint; J30.9 Allergic rhinitis, unspecified; M19.90 Unspecified osteoarthritis, unspecified site; R27.0 Ataxia, unspecified; R79.89 Other specified abnormal findings of blood chemistry; Z79.4 Long term (current) use of insulin; Z79.82 Long term (current) use of aspirin; Z82.49 Family history of ischemic heart disease and other diseases of the circulatory system; Z86.73 Personal history of transient ischemic attack (TIA), and cerebral infarction without residual deficits; Z87.891 Personal history of nicotine dependence; Z90.710 Acquired absence of both cervix and uterus; Z95.5 Presence of coronary angioplasty implant and graft
CPT/HCPCS: 36415; 70450; 72125; 73562; 80048; 80061; 81001; 82962; 83036; 84443; 84484; 85025; 87086; 90686; 90732; 93005; 93306; 93880; 96360; J0360; J1815; J7030; J7040; 97110; 97116; 99285-25

== ENCOUNTER 2017-11-24 10:08 | Inpatient (IN) | payer MEDICARE, MEDICAID ==
[2017-11-24 11:30] LABS: ADD MAN DIFF? NO
[2017-11-24 11:40] LABS: BASO # 0.1 x10^3/uL (0.0-0.2); BASO % 1 % (0-3); EOS % 0 % (0-3); HEMATOCRIT 35.7 % (36.0-47.0); HEMOGLOBIN 11.6 g/dL (12.0-15.5); INFLUENZA A PATIENT POSITIVE (NEGATIVE); INFLUENZA B PATIENT NEGATIVE (NEGATIVE); LYMPH # 1.4 x10^3/uL (1.0-4.8); LYMPH % 18 % (24-48); MEAN CORPUSCULAR HEMOGLOBIN 32 pg (25-35); MEAN CORPUSCULAR HGB CONC 33 g/dL (31-37); MEAN CORPUSCULAR VOLUME 97 fL (79-100); MONO # 1.2 x10^3/uL (0.0-1.1); MONO % 16 % (0-9); NEUT % 66 % (31-73); OBC FLU VALID; PLATELET COUNT 210 x10^3/uL (140-400); RED BLOOD COUNT 3.69 x10^6/uL (3.50-5.40); RED CELL DISTRIBUTION WIDTH 14.2 % (11.5-14.5); WHITE BLOOD COUNT 7.7 x10^3/uL (4.0-11.0)
[2017-11-24 11:46] LABS: PROTHROMBIN TIME PATIENT 12.8 SEC (11.7-14.0)
[2017-11-24 12:24] LABS: ANION GAP 10 (6-14); BLOOD UREA NITROGEN 28 mg/dL (7-20); CALCIUM 8.1 mg/dL (8.5-10.1); CARBON DIOXIDE 25 mmol/L (21-32); CHLORIDE 99 mmol/L (98-107); CREATININE 1.7 mg/dL (0.6-1.0); GFR 28.6; GLUCOSE 121 mg/dL (70-99); POTASSIUM 4.8 mmol/L (3.5-5.1); SODIUM 134 mmol/L (136-145)
[2017-11-24 12:26] LABS: BILIRUBIN,URINE NEGATIVE (NEG); CLARITY,URINE CLEAR; COLOR,URINE YELLOW; GLUCOSE,URINE NEGATIVE (NEG); NITRITE,URINE NEGATIVE (NEG); PROTEIN,URINE 30 mg/dL (NEG-TRACE); UROBILINOGEN,URINE 0.2 mg/dL (0.2 mg/dL)
[2017-11-24 12:29] LABS: ALBUMIN 3.3 g/dL (3.4-5.0); ALK PHOS 70 U/L (46-116); ALT (SGPT) 16 U/L (14-59); AST (SGOT) 19 U/L (15-37); DIRECT BILIRUBIN 0.1 mg/dL (0.0-0.2); LIPASE 235 U/L (73-393); MAGNESIUM 1.9 mg/dL (1.8-2.4); TOTAL BILIRUBIN 0.2 mg/dL (0.2-1.0); TOTAL PROTEIN 6.5 g/dL (6.4-8.2)
[2017-11-24 12:34] LABS: NT-PRO BNP 2193 pg/mL (0-449)
[2017-11-24 12:35] LABS: BACTERIA,URINE 0 /HPF (0-FEW); HYALINE CASTS, URINE FEW /HPF; SQUAMOUS EPITHELIAL CELL,UR FEW /LPF
[2017-11-24 12:35] LABS: THYROID STIM HORMONE (TSH) 6.989 uIU/mL (0.358-3.74)
[2017-11-24 12:36] LABS: TROPONINI < 0.017 ng/mL (0.000-0.055)
[2017-11-24] MEDS ORDERED: hydrALAZINE 20 MG/ML VIAL. IVP (13:15)
[2017-11-24] MEDS ORDERED: ONDANSETRON PF 4 MG/2 ML VIAL. IV ×2 (13:15)
[2017-11-24] MEDS ORDERED: DEXTROSE 50% 25 GM / 50ML DISP.SYRIN. IV (13:15)
[2017-11-24] MEDS ORDERED: ONDANSETRON ODT 4 MG TAB.RAPDIS. PO (13:15)
[2017-11-24 13:54] LABS: FREE T4 1.16 ng/dL (0.76-1.46)
[2017-11-24 16:11] LABS: POC GLUCOSE 140 mg/dL (70-99)
[2017-11-24] MEDS: INSULIN ASPART 300 UNITS/3 ML INSULN.PEN SQ (16:45)
[2017-11-24] MEDS: METOPROLOL SUCC 24HR ER 25 MG TAB.ER.24H. PO (16:53)
[2017-11-24] MEDS: predniSONE 20 MG TABLET PO (16:53)
[2017-11-24 19:36] LABS: TROPONINI < 0.017 ng/mL (0.000-0.055)
[2017-11-24 20:36] LABS: POC GLUCOSE 190 mg/dL (70-99)
[2017-11-24] MEDS ORDERED: METOPROLOL TART IMMED RELEASE 25 MG TABLET. PO (21:00)
[2017-11-24] MEDS: SIMVASTATIN 40 MG TABLET. PO (21:05)
[2017-11-24] MEDS: MEMANTINE 5 MG TABLET. PO (21:05)
[2017-11-24] MEDS: DONEPEZIL HCL 5 MG TABLET. PO (21:05)
[2017-11-25 01:06] LABS: ADD MAN DIFF? NO
[2017-11-25 01:14] LABS: BASO % 1 % (0-3); EOS % 0 % (0-3); HEMATOCRIT 36.5 % (36.0-47.0); HEMOGLOBIN 11.9 g/dL (12.0-15.5); LYMPH # 0.8 x10^3/uL (1.0-4.8); LYMPH % 16 % (24-48); MEAN CORPUSCULAR HEMOGLOBIN 32 pg (25-35); MEAN CORPUSCULAR HGB CONC 33 g/dL (31-37); MEAN CORPUSCULAR VOLUME 97 fL (79-100); MONO # 0.1 x10^3/uL (0.0-1.1); MONO % 2 % (0-9); NEUT # 4.1 x10^3uL (1.8-7.7); NEUT % 82 % (31-73); PLATELET COUNT 209 x10^3/uL (140-400); RED BLOOD COUNT 3.76 x10^6/uL (3.50-5.40); RED CELL DISTRIBUTION WIDTH 14.2 % (11.5-14.5); WHITE BLOOD COUNT 5.1 x10^3/uL (4.0-11.0)
[2017-11-25 01:27] LABS: ANION GAP 12 (6-14); BLOOD UREA NITROGEN 33 mg/dL (7-20); CALCIUM 8.4 mg/dL (8.5-10.1); CARBON DIOXIDE 24 mmol/L (21-32); CHLORIDE 100 mmol/L (98-107); CREATININE 1.6 mg/dL (0.6-1.0); GFR 30.6; GLUCOSE 235 mg/dL (70-99); POTASSIUM 4.2 mmol/L (3.5-5.1); SODIUM 136 mmol/L (136-145)
[2017-11-25 01:35] LABS: TROPONINI < 0.017 ng/mL (0.000-0.055)
[2017-11-25] MEDS: LEVOTHYROXINE 100 MCG TABLET PO (06:23)
[2017-11-25] MEDS: PANTOPRAZOLE 40 MG TABLET.DR. PO (06:23)
[2017-11-25] MEDS: INSULIN ASPART 300 UNITS/3 ML INSULN.PEN SQ ×3 (08:06→17:16)
[2017-11-25 08:32] LABS: POC GLUCOSE 189 mg/dL (70-99)
[2017-11-25] MEDS: MEMANTINE 5 MG TABLET. PO ×2 (09:00→20:08)
[2017-11-25] MEDS: predniSONE 20 MG TABLET PO (09:00)
[2017-11-25] MEDS: LINAGLIPTIN 5 MG TABLET PO (09:00)
[2017-11-25] MEDS: CLOPIDOGREL BISULFATE 75 MG TABLET PO (09:00)
[2017-11-25] MEDS: LISINOPRIL 20 MG TABLET PO (09:01)
[2017-11-25] MEDS: LOSARTAN POTASSIUM 50 MG TABLET. PO (09:01)
[2017-11-25] MEDS: METOPROLOL SUCC 24HR ER 25 MG TAB.ER.24H. PO (09:01)
[2017-11-25] MEDS ORDERED: hydrALAZINE 20 MG/ML VIAL. IVP (10:45)
[2017-11-25] MEDS: IV 1/2 NORMAL SALINE 1,000 ML IV (11:52)
[2017-11-25 16:47] LABS: POC GLUCOSE 187 mg/dL (70-99)
[2017-11-25] MEDS: SIMVASTATIN 40 MG TABLET. PO (20:08)
[2017-11-25] MEDS: HYDROcodone/APAP 7.5/325MG 1 TAB TABLET PO (20:08)
[2017-11-25] MEDS: DONEPEZIL HCL 5 MG TABLET. PO (20:08)
[2017-11-25] MEDS: traMADol 50 MG TABLET PO (20:09)
[2017-11-25 20:17] LABS: POC GLUCOSE 210 mg/dL (70-99)
[2017-11-25 20:22] LABS: POC GLUCOSE 241 mg/dL (70-99)
[2017-11-26] MEDS: PANTOPRAZOLE 40 MG TABLET.DR. PO (05:53)
[2017-11-26] MEDS: LEVOTHYROXINE 100 MCG TABLET PO (05:53)
[2017-11-26] MEDS: INSULIN ASPART 300 UNITS/3 ML INSULN.PEN SQ ×2 (08:00→12:08)
[2017-11-26 08:09] LABS: POC GLUCOSE 150 mg/dL (70-99)
[2017-11-26] MEDS: LINAGLIPTIN 5 MG TABLET PO (08:18)
[2017-11-26] MEDS: METOPROLOL SUCC 24HR ER 25 MG TAB.ER.24H. PO (08:18)
[2017-11-26] MEDS: LOSARTAN POTASSIUM 50 MG TABLET. PO (08:18)
[2017-11-26] MEDS: CLOPIDOGREL BISULFATE 75 MG TABLET PO (08:18)
[2017-11-26] MEDS: LISINOPRIL 20 MG TABLET PO (08:19)
[2017-11-26] MEDS: predniSONE 20 MG TABLET PO (08:19)
[2017-11-26] MEDS: MEMANTINE 5 MG TABLET. PO (08:19)
[2017-11-26 11:43] LABS: POC GLUCOSE 168 mg/dL (70-99)
== END 2017-11-26 14:42 | disposition home health service (06) | DRG 304 ==
LOC: ER 10:08 → ED HOLD 12:30 → 5 NORTH 15:01
DX: I16.0 Hypertensive urgency (principal); N17.0 Acute kidney failure with tubular necrosis; E87.1 Hypo-osmolality and hyponatremia; E44.1 Mild protein-calorie malnutrition; J10.1 Influenza due to other identified influenza virus with other respiratory manifestations; E11.9 Type 2 diabetes mellitus without complications; I11.0 Hypertensive heart disease with heart failure; I50.9 Heart failure, unspecified; E03.9 Hypothyroidism, unspecified; E78.5 Hyperlipidemia, unspecified; F02.80 Dementia in other diseases classified elsewhere, unspecified severity, without behavioral disturbance, psychotic disturbance, mood disturbance, and anxiety; G30.9 Alzheimer's disease, unspecified; I25.10 Atherosclerotic heart disease of native coronary artery without angina pectoris; K21.9 Gastro-esophageal reflux disease without esophagitis; Z96.659 Presence of unspecified artificial knee joint; E05.90 Thyrotoxicosis, unspecified without thyrotoxic crisis or storm; M19.90 Unspecified osteoarthritis, unspecified site; Z79.84 Long term (current) use of oral hypoglycemic drugs; Z79.899 Other long term (current) drug therapy; Z82.49 Family history of ischemic heart disease and other diseases of the circulatory system; Z86.73 Personal history of transient ischemic attack (TIA), and cerebral infarction without residual deficits; Z95.5 Presence of coronary angioplasty implant and graft; Z90.710 Acquired absence of both cervix and uterus; Z68.30 Body mass index [BMI] 30.0-30.9, adult; Z88.1 Allergy status to other antibiotic agents; Z88.8 Allergy status to other drugs, medicaments and biological substances; Z90.49 Acquired absence of other specified parts of digestive tract
CPT/HCPCS: 36415; 71045; 80048; 80076; 81001; 82962; 83690; 83735; 83880; 84439; 84443; 84481; 84484; 85025; 85610; 87040; 87804; 87804-59; 93005; 97162-GP; 97166-GO; 97530-GO; 97535-GO; 99285; J1815; J7512